=== PATIENT | female | born 1960 | race Caucasian/White ===

== ENCOUNTER 2017-09-19 16:41 | Inpatient (IN) | payer SELFPAY ==
[~2017-09-19 16:41] MED LIST: ISOVUE-370 76%-LOCM 1 ML ONE
[2017-09-19] MEDS ORDERED: Adenosine 6 MG/2 ML VIAL ONE ×2 (16:58→17:04)
[2017-09-19] MEDS ORDERED: ESMOLOL ONE (17:03)
[2017-09-19] MEDS ORDERED: NS ONE (17:03)
[2017-09-19 17:29] LABS: #Basophils 0.1 thou/uL (0.0-0.2); #Lymphocytes 0.8 thou/uL (1.20-3.40); #Monocytes 0.3 thou/uL (0.11-0.59); #Neutrophils 6.3 thou/uL (1.40-6.50); %Basophils 0.8 % (0.0-1.0); %Eosinophils 0.3 % (0.0-10.0); %Lymphocytes 10.4 % (21.0-51.0); %Monocytes 3.6 % (0.0-10.0); %Neutrophils 84.9 % (42.0-75.0); Mean Corpuscular HGB CONC 31.7 g/dL (32.0-36.0); Mean Corpuscular Hemoglobin 32.2 pg (27.0-31.0); Mean Platelet Volume 9.5 fL (7.4-10.4); Platelet Count 246 thou/uL (130-400); RBC Distribution Width 12.5 % (11.5-14.5); Red Blood Cell (RBC) Count 4.66 mill/uL (4.20-5.40); White Blood Cell (WBC) Count 7.4 thou/uL (4.8-10.8)
[2017-09-19] MEDS ORDERED: Diltiazem HCl 125 MG, Admixture Fee 1 EACH in Sodium Chloride 0.9% 100 ML IVPB SCH (17:30)
[2017-09-19 17:31] LABS: INR-International Normal Ratio 1.2; PTT 25.9 SEC (22.9-36.1); Prothrombin Time 15.1 SEC (12.0-14.7)
[2017-09-19 17:35] LABS: ALT (SGPT) 77 U/L (8-55); AST (SGOT) 59 U/L (5-34); Alkaline Phosphatase 67 U/L (40-150); Anion Gap 15 mmol/L (10-20); BUN (Urea Nitrogen) 21 mg/dL (9.8-20.1); Bilirubin, Total 0.7 mg/dL (0.2-1.2); CK (CPK) 60 U/L (29-168); Calc. Creatinine Clearance 0 mL/min (70-130); Calcium 9.2 mg/dL (7.8-10.44); Carbon Dioxide 20 mmol/L (22-29); Chloride 107 mmol/L (98-107); Estimated GFR-MDRD 62; Globulin 2.7 g/dL (2.4-3.5); Glucose 215 mg/dL (70-105); Potassium 4.7 mmol/L (3.5-5.1); Protein, Total 6.7 g/dL (6.0-8.3); Sodium 137 mmol/L (136-145)
[2017-09-19 17:39] LABS: CKMB 2.4 ng/mL (0-6.6); Troponin I Less than 0.010 ng/mL (< 0.028)
--- NOTE | 2017-09-19 18:11 | RAD ---
PORTABLE AP CHEST X-RAY 09/19/17 HISTORY: Difficulty breathing for several months. COMPARISON: None available. FINDINGS: There are pleural and parenchymal changes in the right lung base likely related to small right pleura l effusion and atelectasis. This does obscure the right cardiac borderline, but the cardiac silhouett e is probably mildly enlarged. Pulmonary vasculature is within normal limits. Linear density seen in the right mid lung zone probably related to small amount of fluid in the region of the minor fissure. Left lung is clear. Osseous structures are intact. IMPRESSION: 1. Small right pleural effusion and atelectasis. 2. Cardiomegaly without overt CHF. POS: H
[2017-09-19 18:28] LABS: Bilirubin Negative (Negative); Blood, Urine Negative (Negative); Clarity CLEAR (Clear); Glucose, Urine (Dipstick) 100 mg/dL (Negative); Leukocyte Negative (Negative); Nitrite Negative (Negative); Protein, Urine (Dipstick) Negative (Neg-Trace); Specific Gravity, Urine 1.011 (1.002-1.036); Urobilinogen 0.2 mg/dL (0.2-1.0)
[2017-09-19] MEDS ORDERED: Enoxaparin Sodium 80 MG/0.8 ML SYRINGE ONE (18:31)
[2017-09-19] MEDS ORDERED: Ondansetron HCl/PF 4 MG/2 ML Vial IVP PRN (19:21)
--- NOTE | 2017-09-19 19:21 | PDOC.EVN ---
Event Note - Event Note Event Note: [id number] H&P dictated 1. AFIB RVR 2. Dyspnea 3. Acute hypoxic respiratory failure plan: see orders
[2017-09-19] MEDS ORDERED: Enoxaparin Sodium 60 MG/0.6 ML SYRINGE SC SCH (19:30)
[2017-09-19 20:58] LABS: Troponin I 0.013 ng/mL (< 0.028)
[2017-09-19 21:39] VITALS: BMI 28.3
[2017-09-19] MEDS: Furosemide 20 MG/2 ML VIAL SLOW IVP SCH (21:59)
--- NOTE | 2017-09-19 22:01 | CT ---
CT ANGIOGRAM THORAX WITH IV CONTRAST AND 3D RECONSTRUCTIONS 09/19/17 HISTORY: Dyspnea and shortness of breath for the last several months. History of asthma. Hypertension. COMPARISON: None available. FINDINGS: No filling defects are seen in the pulmonary arteries to suggest a pulmonary embolus. The thoracic ao rta is not opacified as this exam was tailored for evaluation of the pulmonary arteries, but the thor acic aorta is normal in caliber with a few scattered vascular calcifications in the thoracic aorta. There is a small to moderate sized right pleural effusion with associated passive atelectasis. There is a tiny left pleural effusion with passive atelectasis. No discrete pulmonary nodule or mass is vis ualized. There is a nonspecific, nonenlarged prevascular space lymph node measuring 8 mm in short axi s dimension. No enlarged lymph nodes are seen by CT size criteria. There is limited evaluation of the upper abdomen due to lack of intravenous contrast. There is question of prominence of the common dg t which measures 1.2 cm. The osseous structures are intact. IMPRESSION: 1. Moderate sized left pleural effusion and atelectasis with tiny left pleural effusion and pass carrie atelectasis. 2. No CT evidence of pulmonary embolus. 3. Limited evaluation of the upper abdomen, but there is suggestion of mild dilatation of the co mmon duct. However, the common duct or gallbladder are not completely imaged on this exam. Etiology f or common duct dilatation is unable to be delineated on this exam. POS: TRAVIS
[2017-09-19 23:20] LABS: Troponin I 0.013 ng/mL (< 0.028)
--- NOTE | 2017-09-20 01:32 | HP ---
DATE OF ADMISSION: 09/19/2017 CHIEF COMPLAINT: Dyspnea. HISTORY OF PRESENT ILLNESS: Patient is a 57-year-old female came today, complaining of dyspnea. Dys pnea started all of sudden, constant, this has been going on for last 2 months, but got more worse to day. Complains of some palpitations. Denies any cough. Denies any sputum production. Complains of chest pain. Chest pain is tightness kind all over the chest. No aggravating factors. No relieving factors. Patient tried breathing treatments for last treatment and was also seen numerous tha es, but the breathing did not improve, so she came to the ER. Denies any cough, denies any sputum pr oduction, denies any fever, denies any chills. Upon ER arrival, patient was found to be in heart rat e around 180, so patient was given adenosine and diagnosed having atrial fibrillation RVR, so patient is currently on Cardizem drip. Patient denies any palpations, denies any dizziness, denies any naus ea. Denies any vomiting. PAST MEDICAL HISTORY: Hypertension, COPD. PAST SURGICAL HISTORY: Oral surgery. SOCIAL HISTORY: Positive for smoking. Denies any alcohol, denies any drugs. FAMILY HISTORY: Positive for emphysema. MEDICATIONS: Reviewed. REVIEW OF SYSTEMS: Constitutional: Denies any fever, denies any chills. Eyes: Denies any vision p roblems. Ears: Denies any hearing loss. Neck: Denies any neck pain. Cardiovascular system: Posi tive for chest pain. Respiratory System: Positive for dyspnea. Gastrointestinal: Denies any nause a, vomiting. Musculoskeletal: Denies any joint deformities. Integumentary: Denies any rash. All other review of systems are reviewed and are negative. PHYSICAL EXAMINATION: CONSTITUTIONAL/VITAL SIGNS: At the time of H&P performed, blood pressure is 120/70, heart rate 110s- 130s, respiratory rate 18, pulse ox 93% on 3 liters. GENERAL: Patient appears tired. HEENT: Anterior nares patent. Nose normal. Ears normal. Teeth intact. Tongue is moist. NECK: Supple, no JVD. CARDIOVASCULAR SYSTEM: S1, S2 present. Tachycardic, irregular. No murmurs, no rubs, no gallops. RESPIRATORY SYSTEM: Positive for wheezing. Positive for rhonchi. No accessory muscle seen. GASTROINTESTINAL: Soft, nontender, no guarding, no organomegaly, no masses felt. MUSCULOSKELETAL: No edema. CRANIAL NERVOUS SYSTEM: Awake, follows commands. Speech clear. PSYCHIATRIC: Mood appropriate at this time. INTEGUMENTARY: No rash seen. LABORATORY DATA: At the time of H&P performed white count 7.4, hemoglobin 15, platelet count is 246. PT 15.1, INR 1.2. BMP shows sodium 137, potassium 4.7, chloride 107, CO2 of 20, BUN of 21, creatin ine 0.94. Troponin less than 0.010. BNP 723. Chest x-ray positive for cardiomegaly without CHF, sm all right pleural effusion. ASSESSMENT AND PLAN: Patient is a 57-year-old female: 1. Atrial fibrillation with rapid ventricular response. Plan to check TSH, cardiac enzymes, and als o mag level. Plan to check 2D echo. Plan to consult Cardiology to evaluate the patient. Plan to st art patient on Cardizem drip. 2. Acute hypoxic respiratory failure, etiology unclear, might be secondary to underlying chronic obs tructive pulmonary disease. Plan to consult Pulmonary to evaluate the patient. Plan to start patien t on breathing treatments. CT chest, preliminary is negative for PE. We will wait for the official report. We will go ahead and consult Pulmonary. Will go ahead and give a dose of Lovenox also for t he atrial fibrillation with rapid ventricular response. 3. Dyspnea, we will give a dose of Lasix. We will start patient with elevated BNP. Plan to start p atient on Lasix 20 mg IV b.i.d. We will wait for 2D echo report. 4. History of hypertension. Monitor blood pressure. Continue home blood pressure meds. Case was discussed in detail with the patient. Patient is FULL CODE.
[2017-09-20] MEDS: Acetaminophen 325 MG TAB PO PRN ×2 (03:14→23:36)
[2017-09-20 04:33] LABS: #Basophils 0.1 thou/uL (0.0-0.2); #Lymphocytes 0.8 thou/uL (1.20-3.40); #Monocytes 0.1 thou/uL (0.11-0.59); #Neutrophils 8.6 thou/uL (1.40-6.50); %Basophils 0.8 % (0.0-1.0); %Lymphocytes 7.8 % (21.0-51.0); %Monocytes 1.1 % (0.0-10.0); %Neutrophils 90.2 % (42.0-75.0); Hemoglobin 14.9 g/dL (12.0-16.0); Mean Corpuscular Hemoglobin 33.4 pg (27.0-31.0); Mean Platelet Volume 9.9 fL (7.4-10.4); Platelet Count 218 thou/uL (130-400); RBC Distribution Width 12.3 % (11.5-14.5); Red Blood Cell (RBC) Count 4.46 mill/uL (4.20-5.40); White Blood Cell (WBC) Count 9.5 thou/uL (4.8-10.8)
[2017-09-20 05:00] LABS: Anion Gap 14 mmol/L (10-20); BUN (Urea Nitrogen) 17 mg/dL (9.8-20.1); Calc. Creatinine Clearance 114 mL/min (70-130); Calcium 9.3 mg/dL (7.8-10.44); Carbon Dioxide 24 mmol/L (22-29); Chloride 104 mmol/L (98-107); Estimated GFR-MDRD 87; Glucose 151 mg/dL (70-105); Potassium 4.1 mmol/L (3.5-5.1); Sodium 138 mmol/L (136-145)
[2017-09-20] MEDS: Furosemide 20 MG/2 ML VIAL SLOW IVP SCH ×2 (07:45→20:54)
[2017-09-20] MEDS ORDERED: Digoxin 0.5 MG/2 ML AMP SLOW IVP SCH (13:00)
--- NOTE | 2017-09-20 14:31 | PDOC.PN ---
- Subjective Encounter Start Date: 09/20/17 Encounter Start Time: 14:28 Subjective: Seen and examined feeling better but still in Afib - Objective Vital Signs & Weight: Vital Signs (12 hours) Temp Pulse Resp BP Pulse Ox 09/20/17 13:09 120 H 09/20/17 11:15 97.9 F 102 H 18 110/70 94 L 09/20/17 11:02 97 16 09/20/17 08:36 116 H 16 09/20/17 08:34 98.7 F 104 H 18 110/87 91 L 09/20/17 07:32 98.6 F 90 20 90 L 09/20/17 04:06 98.6 F 90 20 124/78 91 L Weight Weight 175 lb 7.807 oz I&O: 09/19/17 09/20/17 09/21/17 06:59 06:59 06:59 Intake Total 960 Output Total 3100 Balance -2140 Result Diagrams: 09/20/17 03:51 09/20/17 03:51 Phys Exam - Physical Examination Constitutional: NAD HEENT: PERRLA, moist MMs, sclera anicteric, TM's clear Neck: no nodes, no JVD, supple, full ROM Respiratory: no wheezing, no rales Cardiovascular: no significant murmur, no rub, irregular Gastrointestinal: soft, non-tender, no distention, positive bowel sounds Musculoskeletal: no edema, pulses present Dx/Plan (1) Afib Code(s): I48.91 - UNSPECIFIED ATRIAL FIBRILLATION Status: Acute (2) Respiratory distress Code(s): R06.03 - ACUTE RESPIRATORY DISTRESS Status: Acute (3) COPD (chronic obstructive pulmonary disease) Status: Acute - Plan cont current plan of care, PT/OT, social work nurse, respiratory therapy Cardiology following -: On cardizem gtt--may undergo cardioversion -: Cont nebs treatment * .
--- NOTE | 2017-09-20 15:37 | EKG ---
Test Reason : Blood Pressure : / mmHG Vent. Rate : 179 BPM Atrial Rate : 166 BPM P-R Int : 000 ms QRS Dur : 068 ms QT Int : 242 ms P-R-T Axes : 000 092 267 degrees QTc Int : 417 ms Atrial fibrillation with rapid ventricular response Rightward axis Septal infarct , age undetermined Abnormal ECG Confirmed by GÉNESIS JACKMAN, ARMANI Kidd ([id number]), health editor WOLF MORIN ([id number]) on 09/20/2017 3:37:36 PM Referred By: Confirmed By:ARMANI CAPPS MD
[2017-09-20] MEDS: Digoxin 0.5 MG/2 ML AMP SLOW IVP SCH (18:31)
--- NOTE | 2017-09-20 18:34 | CON ---
DATE OF CONSULTATION: 09/20/2017 CARDIOLOGY CONSULTATION INDICATION FOR CONSULTATION: This is a 57-year-old female with atrial fibrillation with rapid ventri cular response. HISTORY OF PRESENT ILLNESS: This is a very pleasant 57-year-old female with no previous cardiac hist ory. She has been complaining of shortness of breath and not feeling well for the last several weeks . She has a history of COPD in the form of asthma. She thought it radiated into her lungs and some asthma flare ups. She was seen in the emergency and was found to have atrial fibrillation with rapid ventricular response and was started on IV diltiazem, for which she remains on IV diltiazem at this time, the heart rate is under somewhat better control. When she arrived in the emergency room, the h eart rate was extremely fast with the atrial fibrillation with rapid ventricular response. Heart rat e was 180 beats per minute. At this time, the heart rate is under much better control with IV diltia zem and it is now in the 102 range. Her chest x-ray did show evidence of right pleural effusion comp atible with some congestive heart failure symptoms. She also has had slight elevation of the BNP of 723. I suspect she has had atrial fibrillation for several weeks and has developed congestive heart failure associated with the rapid ventricular response. Her EKG before does not show any EKG changes compatible with ischemia with rapid heart rates. She denied any dizziness or chest pain at home. S he states she has gained some weight and she admits she has been diuresing since she has been here an d has been given actually a small dose of IV Lasix. She also had a CT angiogram performed which did not show any evidence of pulmonary emboli, but did show small left pleural effusion and a moderate si ze right pleural effusion. At this time, she denies any chest pain. She is resting more comfortable . Her heart rate still remains in the 100s and she continues in atrial fibrillation. PAST MEDICAL HISTORY: Significant for COPD or asthma since her 22. She has a history of tobacco abu se. She stopped about 6 weeks ago. She has a history of hypertension, anxiety, depression. She has had oral surgery. SOCIAL HISTORY: She is . She has 1 child with no heart disease. She stopped smoking 6 weeks ago. She has occasional alcohol use. 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 MEDICATIONS: At the time include IV diltiazem, Tylenol, Lovenox, Lasix, albuterol, prednisone, and Z ofran. She has been on lisinopril in the past for her hypertension. We will probably resume this me dication once her blood pressure becomes more stable. ALLERGIES: None. REVIEW OF SYSTEMS: She wears glasses. She has occasional blurred vision. She has had no recent eye check. No new glasses in the last 2 years. She has gained some weight. She has arthritis. She co mplains of dyspnea on exertion. Otherwise, the 12-point review of systems unremarkable. PHYSICAL EXAMINATION: GENERAL: Reveals a well-developed, well-nourished, very pleasant female. VITAL SIGNS: Her blood pressure 110/70, heart rate is 102 and irregular. She is afebrile, respirato ry rate is 18. HEENT: Shows head to be normocephalic and atraumatic. Carotid pulses are present. I did not hear a ny bruits. CHEST: Has decreased breath sounds in the bases, more so on the right side than left. CARDIOVASCULAR: Reveals an irregular, irregular rhythm. Heart sounds are somewhat distant, but I do not hear any gross murmurs, heaves, thrills, bruits or rubs. ABDOMEN: Shows mild obesity with positive bowel sounds. No organomegaly or masses noted. Femoral p ulses are present. Pedal pulses are present. There is no edema noted. NEUROLOGIC: She appears to be fully intact. SKIN: Warm and dry. IMAGING DATA: EKG shows atrial fibrillation with rapid ventricular response with no ischemic changes noted. Chest x-ray shows a moderate size right pleural effusion. IMPRESSION: 1. Atrial fibrillation with rapid ventricular response. Her CHADS-VASc score is at least 2. She sh ould be on some type of oral anticoagulation and hopefully she will be able to be anticoagulated and then we will eventually convert back to sinus rhythm in the future. I will need to obtain an echocar diogram to determine the left atrial size, also evaluation of left ventricular systolic function. On ce she has been anticoagulated 4-6 weeks, we will start her on medications to possibly convert her ba ck to sinus rhythm. Depending on her echocardiogram, we will decide whether or not she needs amiodar one or flecainide or any other antiarrhythmic medications in order to get her back to sinus rhythm. 2. History of hypertension. This is under good control at this time, but may need further adjustmen t once she is over the acute phase. 3. Possible diabetes. Her glucose was elevated. Her blood sugar is elevated at 151, but she denies any history of having diabetes in the past. We will continue to follow this patient with you. 4. Atrial fibrillation with rapid ventricular response which has been kept in toe and improved with IV diltiazem. We will add IV digoxin starting today for loading dose and start her on p.o. digoxin t omorrow. She may need to have further evaluation to determine etiology of atrial fibrillation, most likely is due to chronic obstructive pulmonary disease exacerbation. 5. History of possible diabetes. We will need to obtain a hemoglobin A1c. Otherwise, we will manjit rene to follow her with you.
[2017-09-20] MEDS: Enoxaparin Sodium 80 MG/0.8 ML SYRINGE SC SCH (20:52)
--- NOTE | 2017-09-20 22:28 | CON ---
DATE OF CONSULTATION: 09/20/2017 SERVICE: Pulmonary Medicine. REASON FOR CONSULTATION: [facility] patient. HISTORY OF PRESENT ILLNESS: The patient is a 57-year-old white female with past medical history significant for possible COPD versus asthma. She is on some inhalers, but typically does not require them. That is until about 3 months ago. She started having increasing shortness of breath that was a little bit worse when she was lying down. It progressed over the last 3 months and over the last week, she has been having a difficult time sleeping and moving about. 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 She was having hard time getting through her shift without breathing in through her nose and out through the mouth. Ultimately, her shortness of breath progressed to the point where she really could not by anymore and she presented to the emergency department where she was discovered to have a moderate right-sided pleural effusion. She was also in atrial fibrillation with RVR. She was given some Lasix and rate control medication and the patient feels dramatically better. She denies any current fevers, chills, nausea or vomiting. Her appetite is returning and she started to feel much improved. Otherwise, there has been no interval change to her condition. PAST MEDICAL HISTORY: 1. Hypertension. 2. Chronic obstructive pulmonary disease, possible. 3. Atrial fibrillation with history of rapid ventricular response. PAST SURGICAL HISTORY: Oral surgery. SOCIAL HISTORY: She smokes half a pack on a daily basis and has a [id number] history of smoking. She denies any alcohol or illicit drugs. She has no exposure to chemicals, dusts, asbestos or tuberculosis. FAMILY HISTORY: Noncontributory. ALLERGIES: No known drug allergies. MEDICATIONS: List of her inpatient medications were reviewed. Couple of small updates were made. REVIEW OF SYSTEMS: General, head, ears, eyes, nose, throat, cardiovascular, respiratory, GI, , musculoskeletal, neurologic and skin is negative except as mentioned in the H&P. PHYSICAL EXAMINATION: VITAL SIGNS: Afebrile, pulse 112, blood pressure 126/82, respirations 22, saturation 95% on room air. HEENT: Normocephalic, atraumatic. Sclerae are white, conjunctivae pink. Oral and nasal mucosa is moist without lesions. GENERAL: The patient is awake and alert, in no apparent distress. LUNGS: Excellent air entry. There is a little decreased air entry at the right base compared to the left, although it is dramatic. There is no prolonged expiratory phase, wheezing or rhonchi. HEART: Tachycardic. Irregular. ABDOMEN: Soft, nontender, nondistended. Bowel sounds are positive. MUSCULOSKELETAL: No cyanosis or clubbing. There is no pitting in the bilateral lower extremities. NEUROLOGIC: Grossly nonfocal. GENITOURINARY: No Macdonald. LABORATORY DATA: WBC 9.5, hemoglobin 14.9, platelets 218. INR 1.2. Basic metabolic profile and liver function studies are essentially unremarkable except for an AST and ALT that are minimally elevated. BNP 723, troponin is negative x3. Urinalysis is unremarkable except for minimal glycosuria. IMAGING: CTA of the chest demonstrates no evidence of a pulmonary embolism. There is a moderate right-sided pleural effusion and a minimal left-sided pleural effusion. No evidence of emphysematous changes are identified. There is minimal atelectasis of the right dependent region of the lung. ASSESSMENT: 1. Acute hypoxic respiratory failure, resolved. 2. Atrial fibrillation with rapid ventricular response. 3. Pleural effusion, bilateral, but much greater on the right. 4. Obstructive sleep apnea, suspected. PLAN: We will continue diuresing the patient until she returns to euvolemia. She will require a repeat chest x-ray in 2-3 weeks in the outpatient setting to verify that the effusion has resolved. If it has not, additional diagnostic studies like a thoracentesis may need to be considered. I am doubtful that this is an infected space or a malignant or inflammatory infusion at this time given the circumstances of her presentation. That being said, it will need to be sampled in the future if it does not resolve once the heart is fixed. 70 minutes have been devoted to this patient in various activities. I personally reviewed all imaging studies and laboratory data noted within this document. For greater than fifty percent of this time, I was interacting with the patient at the bedside or coordinating care with the care team. For the remainder of the time I was immediately available to the patient in the hospital unit. MOJGAN
[2017-09-21] MEDS: Digoxin 0.5 MG/2 ML AMP SLOW IVP SCH (01:38)
[2017-09-21 04:55] LABS: Hemoglobin A1c 5.6 % (4.0-6.0)
[2017-09-21] MEDS: Furosemide 20 MG/2 ML VIAL SLOW IVP SCH ×2 (09:26→20:22)
[2017-09-21] MEDS: Enoxaparin Sodium 80 MG/0.8 ML SYRINGE SC SCH ×2 (09:26→20:21)
[2017-09-21] MEDS: Digoxin 0.25 MG TAB PO SCH (09:26)
[2017-09-21] MEDS: Acetaminophen 325 MG TAB PO PRN (09:27)
--- NOTE | 2017-09-21 10:01 | PDOC.PN ---
- Subjective Encounter Start Date: 09/21/17 Encounter Start Time: 09:58 CC; Dyspnea Sub: Pt says dyspnea improved, currently on room air - Objective Vital Signs & Weight: Vital Signs (12 hours) Temp Pulse Resp BP Pulse Ox 09/21/17 09:26 110 H 09/21/17 08:57 93 L 09/21/17 07:46 97.9 F 95 20 113/80 90 L 09/21/17 04:05 97.7 F 85 21 H 107/61 91 L 09/21/17 01:38 97 09/20/17 23:41 98.1 F 112 H 21 H 123/80 92 L Weight Weight 175 lb 7.807 oz I&O: 09/20/17 09/21/17 09/22/17 06:59 06:59 06:59 Intake Total 960 3675 Output Total 3100 3175 Balance -2140 500 Result Diagrams: 09/20/17 03:51 09/20/17 03:51 Dx/Plan - Plan - Physical Examination Constitutional: NAD HEENT: PERRLA, moist MMs, sclera anicteric, TM's clear Neck: no nodes, no JVD, supple, full ROM Respiratory: no wheezing, no rales, no accessory muscle usage seen Cardiovascular: no significant murmur, no rub, irregular Gastrointestinal: soft, non-tender, no distention, positive bowel sounds Musculoskeletal: no edema, pulses present Dx/Plan (1) Afib Code(s): I48.91 - UNSPECIFIED ATRIAL FIBRILLATION Status: Acute (2) Respiratory distress Code(s): R06.03 - ACUTE RESPIRATORY DISTRESS Status: Acute (3) COPD (chronic obstructive pulmonary disease) Status: Acute 4. Acute hypoxic respiratory failure 5. Pleural effusion - Plan Cradio and pulmonary on board On iv lasix 20mg bid. can switch to po in am Monitor HR closely on room air,respiratory status closely Cont nebs treatment continue lovenox subq bid case d/w pt & RN * .
--- NOTE | 2017-09-21 14:20 | PRG ---
DATE OF SERVICE: 09/21/2017 SERVICE: Pulmonary Medicine. INTERVAL HISTORY: The patient is doing well from a cardiovascular and respiratory standpoint. She h as no complaints of fevers, chills, nausea, vomiting, or chest discomfort. Otherwise, she has return ed to her usual state of health. She has been weaned down to room air. She remains irregular. She is on a little bit of a Cardizem drip, but outside of this, she is very pleased with the progress she has made. PHYSICAL EXAMINATION: VITAL SIGNS: Afebrile, pulse 71, blood pressure 138/85, respirations 15, saturation 94% on room air. GENERAL: The patient is awake, alert, no apparent distress. LUNGS: Excellent air entry with no prolonged expiratory phase, wheezing, rhonchi or crackles. HEART: Irregularly irregular. ABDOMEN: Soft, nontender, nondistended. Bowel sounds are positive. MUSCULOSKELETAL: No cyanosis or clubbing. No pitting in the bilateral lower extremities. NEUROLOGIC: Grossly nonfocal. ASSESSMENT: 1. Acute hypoxic respiratory failure, resolved. 2. Atrial fibrillation with rapid ventricular response. 3. Pleural effusion, bilateral, but much greater on the right. DISCUSSION AND PLAN: The patient is doing absolutely fantastic from a respiratory standpoint. We wi ll continue to gently diurese her to euvolemia, but now that her heart rate is under better control, my suspicion is she will mobilize the fluid on her own. We will need a repeat chest x-ray in 2-3 wee ks in the outpatient setting. She is stable for transition to the telemetry unit. Pulmonary will co ntinue to follow intermittently in that location.
[2017-09-22 04:34] LABS: Platelet Count 234 thou/uL (130-400)
[2017-09-22 04:56] LABS: Anion Gap 15 mmol/L (10-20); BUN (Urea Nitrogen) 28 mg/dL (9.8-20.1); Calc. Creatinine Clearance 100 mL/min (70-130); Calcium 9.5 mg/dL (7.8-10.44); Carbon Dioxide 26 mmol/L (22-29); Chloride 100 mmol/L (98-107); Estimated GFR-MDRD 74; Glucose 91 mg/dL (70-105); Magnesium 2.3 mg/dL (1.6-2.6); Potassium 4.1 mmol/L (3.5-5.1); Sodium 137 mmol/L (136-145)
[2017-09-22] MEDS: Furosemide 20 MG/2 ML VIAL SLOW IVP SCH (08:30)
[2017-09-22] MEDS: Digoxin 0.25 MG TAB PO SCH (08:30)
[2017-09-22] MEDS: Enoxaparin Sodium 80 MG/0.8 ML SYRINGE SC SCH ×2 (08:30→20:30)
--- NOTE | 2017-09-22 10:17 | PRG ---
DATE OF SERVICE: 09/22/2017 SERVICE: Pulmonary Medicine. INTERVAL HISTORY: The patient had increasing cough with some sputum production. She denies any feve rs or chills. She has increasing difficulty with breathing. She is using nebulizer right now which she requested. It seems to be helping her breathing a little bit. Otherwise, there has been no inte rval change to her condition. PHYSICAL EXAMINATION: VITAL SIGNS: Afebrile, pulse 83, blood pressure 123/93, respirations 16, saturation 93% on room air. GENERAL: The patient is awake, alert, no apparent distress. LUNGS: Decent air entry. There is no prolonged expiratory phase or wheezing. There are no rhonchi present. HEART: Normal rate, regular. ABDOMEN: Soft, nontender, and nondistended. Bowel sounds are positive. MUSCULOSKELETAL: No cyanosis or clubbing. No pitting in the bilateral lower extremities. NEUROLOGIC: Grossly nonfocal. LABORATORY DATA: Hemoglobin 17.0, platelets 234,000. INR 1.2. Basic metabolic profile is essential ly unremarkable. Magnesium 2.3, bicarbonate has increased ever so slightly to 26. ASSESSMENT: 1. Acute hypoxic respiratory failure, resolved. 2. Atrial fibrillation with rapid ventricular response. 3. Pleural effusion, bilateral, greater on right. 4. Atelectasis of the right lower lobe. DISCUSSION AND PLAN: The patient is having symptoms associated with hypoxemia. My suspicion is that she is having some atelectasis that comes and goes in the right lower lobe. We will look with an ul trasound. If we see a generous collection of fluid, thoracentesis will be performed. I will repeat the chest x-ray after this procedure can be done. I will decrease her Lasix to once daily. Pulmonar y or Critical Care will continue to follow and she does remain stable for transition to the floor. Bárbara mayfield did have a recent CT of the chest, which did not demonstrate any obvious infiltrate, I am doubtful that one has developed over the last 2 days.
[2017-09-22 13:01] LABS: Pleural Fluid, Protein 2.8 g/dL
[2017-09-22 13:02] LABS: BF Color Yellow; Body Fluid Source THORACENTESIS FLD; Clarity Hazy (Clear); RBC Background Count 0.006; Tube # 1; WBC/NonHematic-Auto 360 /cumm
[2017-09-22 13:19] LABS: BF RBC Count - Manual 170 /cumm
[2017-09-22 13:54] LABS: BF Segmented Neutrophils 2 %; Cell Count Non Hematic 84 %; Lymphocytes 14 %
--- NOTE | 2017-09-22 16:42 | OP ---
DATE OF PROCEDURE: 09/22/2017 SERVICE: Pulmonary Medicine. PROCEDURE: Right-sided pleural drainage with catheter insertion under ultrasound guidance. CONSENT: The risks and benefits of this procedure were explained to the patient. All questions were answered and alternative options explained. STAFF PHYSICIAN: Shane Maxwell MD MEDICATIONS USED: 1% lidocaine without epinephrine, total quantity 10 mL. PREPROCEDURE DIAGNOSES: 1. Pleural effusion. 2. Acute hypoxic respiratory failure. POSTPROCEDURE DIAGNOSES: 1. Pleural effusion. 2. Acute hypoxic respiratory failure. DESCRIPTION OF PROCEDURE: A time-out was performed by the procedure team and patient. The patient w as positively identified using name and date of . The procedure site was marked. Vital sign mo nitoring was accomplished by noninvasive hemodynamic monitoring, pulse oximetry, and telemetry. In t he seated position, the right posterior hemithorax was examined using ultrasound probe. The diaphrag m and pleural fluid were easily identified. The skin was prepped and draped in sterile fashion and a nesthetized with 1% lidocaine without epinephrine. A finder needle was inserted in the pleural space with return of crystal clear yellow fluid. A pleural drainage catheter was then inserted in the jia e location and a total quantity of 750 mL of the same clear fluid was withdrawn by syringe pump techn ique. A sample was sent for analysis. Evacuation was terminated because the fluid stopped coming. At the end of the procedure, estimated pleural pressures, measured by manometry, were -18 cm of pleur al fluid. An intact catheter was withdrawn on exhalation, and sterile dressing was applied. The pat ient had stable vital signs throughout the entire procedure. ESTIMATED BLOOD LOSS: Less than 2 mL. COMPLICATIONS: None.
--- NOTE | 2017-09-22 17:38 | PDOC.PN ---
- Subjective Encounter Start Date: 09/22/17 Encounter Start Time: 16:00 Patient seen and examined. No new complaints. No overnight events. SOB improving. - Objective MAR Reviewed: Yes Vital Signs & Weight: Vital Signs (12 hours) Temp Pulse Resp BP Pulse Ox 09/22/17 16:14 98.8 F 86 18 119/82 91 L 09/22/17 12:00 98.6 F 102 H 18 117/83 91 L 09/22/17 09:31 75 16 93 L 09/22/17 08:30 83 09/22/17 08:24 92 L 09/22/17 08:00 98.2 F 83 18 92 L 09/22/17 07:36 98.2 F 83 18 123/93 H 89 L Weight Weight 175 lb 7.807 oz I&O: 09/21/17 09/22/17 09/23/17 06:59 06:59 06:59 Intake Total 3675 930 Output Total 3175 4900 Balance 500 -3970 Result Diagrams: 09/22/17 04:10 09/22/17 04:10 EKG Reviewed by me: Yes (Tele Afib) Phys Exam - Physical Examination Constitutional: NAD Respiratory: no wheezing, no rhonchi Scat rales at bases Cardiovascular: no rub, irregular Gastrointestinal: soft, non-tender, positive bowel sounds Musculoskeletal: no edema Neurological: moves all 4 limbs Dx/Plan - Plan IMPRESSION: 1. Acute hypoxic respiratory failure 2. Rt pleural effusion s/p thoracentesis 3. Afib with RVR - on Cardizem drip 4. HTN 5. Other issues per PN PLAN: * Transfer to tele * Cont Cardizem drip & PO * On Anticoag * AM labs * Cont to monitor Review of Systems - Review of Systems Cardiovascular: negative: chest pain, palpitations, orthopnea, paroxysmal nocturnal dyspnea, edema, light headedness Gastrointestinal: Nausea, Constipation. negative: Vomiting, Abdominal Pain, Diarrhea, Melena, Hematochezia - Medications/Allergies Allergies/Adverse Reactions: Allergies Allergy/AdvReac Type Severity Reaction Status Date / Time No Known Drug Allergies Allergy Verified 09/19/17 21:23 Medications: Current Medications Acetaminophen (Tylenol) 650 mg PO Q4H PRN PRN Reason: Headache/Fever or Pain Last Admin: 09/21/17 09:27 Dose: 650 mg Albuterol/Ipratropium (Duoneb) 3 ml IPPB [id number] PRN PRN Reason: SOB &/or Wheezing Last Admin: 09/22/17 09:31 Dose: 3 ml Digoxin (Lanoxin) 0.25 mg PO QAM [facility] Last Admin: 09/22/17 08:30 Dose: 0.25 mg Diltiazem HCl (Cardizem Cd) 180 mg PO DAILY [facility] Enoxaparin Sodium (Lovenox) 80 mg SC 0900,2100 [facility] Last Admin: 09/22/17 08:30 Dose: 80 mg Diltiazem HCl 125 mg/Miscellaneous Medication 1 each/ Sodium Chloride 125 mls @ 5 mls/hr IVPB INF ROSELIA PRN Reason: Protocol Last Admin: 09/20/17 17:31 Dose: 125 mls Ondansetron HCl (Zofran) 4 mg IVP Q6H PRN PRN Reason: Nausea/Vomiting Sodium Chloride (Flush - Normal Saline) 10 ml IVF Q12HR [facility] Sodium Chloride (Flush - Normal Saline) 10 ml IVF PRN PRN PRN Reason: Saline Flush
[2017-09-22] MEDS: Senokot S 8.6-50 MG TAB PO SCH (20:31)
[2017-09-23 04:39] LABS: Hemoglobin 18.1 g/dL (12.0-16.0); Platelet Count 213 thou/uL (130-400)
[2017-09-23 05:10] LABS: Anion Gap 16 mmol/L (10-20); BUN (Urea Nitrogen) 23 mg/dL (9.8-20.1); Calc. Creatinine Clearance 104 mL/min (70-130); Calcium 9.3 mg/dL (7.8-10.44); Carbon Dioxide 22 mmol/L (22-29); Chloride 100 mmol/L (98-107); Estimated GFR-MDRD 78; Glucose 98 mg/dL (70-105); Potassium 4.3 mmol/L (3.5-5.1); Sodium 134 mmol/L (136-145)
[2017-09-23] MEDS: Enoxaparin Sodium 80 MG/0.8 ML SYRINGE SC SCH ×2 (08:44→20:35)
[2017-09-23] MEDS: Senokot S 8.6-50 MG TAB PO SCH ×2 (08:44→20:35)
[2017-09-23] MEDS: Digoxin 0.25 MG TAB PO SCH (08:44)
[2017-09-23] MEDS ORDERED: Furosemide 20 MG/2 ML VIAL SLOW IVP SCH (09:00)
[2017-09-23] MEDS: Acetaminophen 325 MG TAB PO PRN (12:34)
[2017-09-23] MEDS ORDERED: cloNIDine 0.1 MG TAB PO PRN (13:46)
--- NOTE | 2017-09-23 13:50 | PDOC.PN ---
- Subjective Encounter Start Date: 09/23/17 Encounter Start Time: 10:40 Patient seen and examined. On Cardizem drip. No overnight events. Feels gen weak - Objective MAR Reviewed: Yes Vital Signs & Weight: Vital Signs (12 hours) Temp Pulse Resp BP BP Pulse Ox 09/23/17 08:44 96 09/23/17 08:00 98.1 F 75 16 95 09/23/17 07:30 98.1 F 75 16 130/98 H 95 09/23/17 03:48 99.0 F 83 16 107/70 92 L Weight Weight 163 lb 4.8 oz I&O: 09/22/17 09/23/17 09/24/17 06:59 06:59 06:59 Intake Total 930 472 Output Total 4900 275 Balance -3970 197 Result Diagrams: 09/23/17 04:03 09/23/17 04:03 EKG Reviewed by me: Yes Phys Exam - Physical Examination Constitutional: NAD Neck: no JVD Respiratory: no wheezing, no rhonchi Scat rales at bases Cardiovascular: RRR, no rub Gastrointestinal: soft, non-tender, positive bowel sounds Musculoskeletal: no edema Neurological: non-focal, moves all 4 limbs Dx/Plan - Plan IMPRESSION: 1. Acute hypoxic respiratory failure 2. Rt pleural effusion s/p thoracentesis 3. Afib with RVR - on Cardizem drip/anticoag 4. HTN 5. Other issues per PN PLAN: * Cont Cardizem drip with PO per Cardiology * On Anticoag * AM labs * Cont to monitor * Possible JAKE-CV Review of Systems - Review of Systems Respiratory: negative: Cough, Dry, Shortness of Breath, Hemoptysis, SOB with Excertion, Pleuritic Pain, Sputum, Wheezing Cardiovascular: negative: chest pain, palpitations, orthopnea, paroxysmal nocturnal dyspnea, edema, light headedness - Medications/Allergies Allergies/Adverse Reactions: Allergies Allergy/AdvReac Type Severity Reaction Status Date / Time No Known Drug Allergies Allergy Verified 09/19/17 21:23 Medications: Current Medications Acetaminophen (Tylenol) 650 mg PO Q4H PRN PRN Reason: Headache/Fever or Pain Last Admin: 09/23/17 12:34 Dose: 650 mg Albuterol/Ipratropium (Duoneb) 3 ml IPPB [id number] PRN PRN Reason: SOB &/or Wheezing Last Admin: 09/22/17 09:31 Dose: 3 ml Clonidine (Catapres) 0.1 mg PO Q4H PRN PRN Reason: Systolic BP > 180 Digoxin (Lanoxin) 0.25 mg PO QAM [facility] Last Admin: 09/23/17 08:44 Dose: 0.25 mg Diltiazem HCl (Cardizem Cd) 180 mg PO DAILY [facility] Last Admin: 09/23/17 08:44 Dose: 180 mg Enoxaparin Sodium (Lovenox) 80 mg SC 0900,2100 [facility] Last Admin: 09/23/17 08:44 Dose: 80 mg Diltiazem HCl 125 mg/Miscellaneous Medication 1 each/ Sodium Chloride 125 mls @ 5 mls/hr IVPB INF [facility] PRN Reason: Protocol Last Admin: 09/20/17 17:31 Dose: 125 mls Ondansetron HCl (Zofran) 4 mg IVP Q6H PRN PRN Reason: Nausea/Vomiting Senna/Docusate Sodium (Senokot S) 1 tab PO BID [facility] Last Admin: 09/23/17 08:44 Dose: Not Given Sodium Chloride (Flush - Normal Saline) 10 ml IVF Q12HR [facility] Last Admin: 09/23/17 08:45 Dose: Not Given Sodium Chloride (Flush - Normal Saline) 10 ml IVF PRN PRN PRN Reason: Saline Flush
--- NOTE | 2017-09-23 14:45 | PDOC.CTH ---
<Cheyanne Sheehan - Last Filed: 09/23/17 15:29> Cardiology Progress Note - Subjective The pt seen and examined. No overnight events. No cardiac complaints. She stated she cannot afford her medication due to no insurance. - Objective Vital Signs Temp Pulse Resp BP BP Pulse Ox 09/23/17 12:40 97.9 F 89 16 107/75 96 09/23/17 08:44 96 09/23/17 08:00 98.1 F 75 16 95 09/23/17 07:30 98.1 F 75 16 130/98 H 95 09/23/17 03:48 99.0 F 83 16 107/70 92 L Weight 163 lb 4.8 oz 09/22/17 09/23/17 09/24/17 06:59 06:59 06:59 Intake Total 930 472 Output Total 4900 275 Balance -3970 197 - Physical Examination General/Neuro: alert & oriented x3 Neck: no JVD present Lungs: other: (diminished at bases) Heart: other: (irregular) Abdomen: soft Extremities: other: (No edema) - Telemetry Telemetry Rhythm: Afib with HR 80s - Labs Result Diagrams: 09/23/17 04:03 09/23/17 04:03 Troponin/CKMB CK-MB (CK-2) 2.4 ng/mL (0-6.6) 09/19/17 17:00 Troponin I 0.013 ng/mL (< 0.028) 09/19/17 22:46 - Assessment/Plan 1. Afib with RVR - Remains in Afib with well controlled HR with Digoxin 0.25mg PO, Diltiazem 180mg daily and Lovenox 80mg BID; Stop Diltiazem Drip. Cont. to monitor on tele; Plan for Cardioversion tomorrow, 09/24/17. 2. Acute hypoxic respiratory failure - stable with RA; managed by PCP/ Pulmonlogist 3. Rt pleural effusion s/p thoracentesis with 750ml out on 09/22/17 4. HTN - stable with current med 5. Ex-smoker, quit in 07/2017 - Smoking cessation education given to the pt MAR reviewed * Ecddho on 09/21/17 showed EF 40-45%, mod LA dilated, mild MR, AR, and TR * [id number] score: 1 (age and female) need OAC. * From Cardiac standpoint, the pt is able to d/c to home when her HR is stable after Diltiazem IV is d/triston. The pt will f/u with Dr Arita' office within 4 wks for ECG check and possible Cardioversion as outpt. Eliquis 5mg BID samples with coupon given to the pt today. Review of Systems - Review of Systems Constitutional: reports: no symptoms reported EENTM: reports: no symptoms reported Respiratory: reports: no symptoms reported Cardiac (ROS): reports: no symptoms reported ABD/GI: reports: no symptoms reported <Jaqueline Arita - Last Filed: 09/25/17 18:49> Cardiology Progress Note - Objective Vital Signs Temp Pulse Resp BP BP BP Pulse Ox 09/25/17 15:50 97.6 F 75 16 122/77 93 L 09/25/17 11:43 98.1 F 86 18 136/89 96 09/25/17 08:44 146 H 09/25/17 07:50 98.4 F 92 16 121/81 93 L Weight 153 lb 14.4 oz 09/24/17 09/25/17 09/26/17 06:59 06:59 06:59 Intake Total 240 Output Total 200 1500 Balance -200 -1260 - Labs Result Diagrams: 09/24/17 04:36 09/24/17 04:36 Troponin/CKMB CK-MB (CK-2) 2.4 ng/mL (0-6.6) 09/19/17 17:00 Troponin I 0.013 ng/mL (< 0.028) 09/19/17 22:46 - Assessment/Plan Pt. seen and eval. by me. I agree with the A/P by the OVERLOCKER.
[2017-09-23] MEDS ORDERED: Apixaban 5 MG TAB PO SCH (21:00)
[2017-09-24 05:32] LABS: Hemoglobin 17.6 g/dL (12.0-16.0); Platelet Count 208 thou/uL (130-400)
[2017-09-24 05:40] LABS: Albumin 3.8 g/dL (3.5-5.0); Anion Gap 12 mmol/L (10-20); BUN (Urea Nitrogen) 20 mg/dL (9.8-20.1); BUN/Creatinine Ratio 25.97; Calc. Creatinine Clearance 97 mL/min (70-130); Calcium 9.4 mg/dL (7.8-10.44); Carbon Dioxide 24 mmol/L (22-29); Chloride 101 mmol/L (98-107); Estimated GFR-MDRD 78; Glucose 115 mg/dL (70-105); Magnesium 2.2 mg/dL (1.6-2.6); Phosphorus 3.1 mg/dL (2.3-4.7); Sodium 133 mmol/L (136-145)
--- NOTE | 2017-09-24 07:31 | PRG ---
DATE OF SERVICE: 09/23/2017 SERVICE: Pulmonary Medicine INTERVAL HISTORY: The patient is doing fine from a respiratory standpoint. She is coughing up a lot more sputum today. It is yellow in color. We did not see previous pneumonia. Previous pneumonia o n the CT of the chest. That being said, there is a possibility she has developed a little bit of bro nchitis while she is here. She does not have any complaints of shortness of breath. If anything, abdias mayfield feels a little bit better ever since the thoracentesis yesterday. PHYSICAL EXAMINATION: VITAL SIGNS: Currently afebrile. Pulse 97, blood pressure 132/93, respirations 14, saturation 94% o n room air. GENERAL: The patient is awake, alert, no apparent distress. LUNGS: Excellent air entry with no prolonged expiratory phase. Minimal rhonchi cleared with cough. No wheezing or crackles are appreciated. HEART: Normal rate, regular. ABDOMEN: Soft, nontender, and nondistended. Bowel sounds are positive. MUSCULOSKELETAL: No cyanosis or clubbing. No pitting in the bilateral lower extremities. NEUROLOGIC: Grossly nonfocal. LABORATORY DATA: Hemoglobin 18.1, platelets 213,000. Sodium 134. Basic metabolic profile is otherw ise unremarkable. Pleural fluid pH 7.5, LDH 119. Glucose 104, total protein 2.8. It is nonhematolo gic predominant cell type. Only 14% lymphocytes are present. Body fluid culture and acid fast smear are unremarkable today. Pathology was positive for reactive mesothelial cells, but there was no mal ignancy present. ASSESSMENT: 1. Acute hypoxic respiratory failure, resolved. 2. Atrial fibrillation with rapid ventricular response, currently rate controlled. 3. Pleural effusion, bilateral, but little greater on the right, status post thoracentesis on the [facility], demonstrating transudate. 4. Atelectasis of the right lower lobe, resolved. 5. Bronchitis. DISCUSSION AND PLAN: For the patient's bronchitis, we will put on a brief course of low doses of jenise roids and give her 5 days of azithromycin. I will watch her sputum changes and possibly escalate the rapy if necessary. That being said, the patient feels like she is moving in the right direction and so we will continue supportive care. Pulmonary or Critical Care will continue to follow while the vicky carl remains in this location for the time being.
[2017-09-24] MEDS ORDERED: Fentanyl 250 MCG/5 ML VIAL ONE (09:17)
[2017-09-24] MEDS ORDERED: Diprivan 20 ML ONE (09:21)
[2017-09-24] MEDS ORDERED: Lidocaine 1% PF 5 ML VIAL ONE ×2 (09:29→14:46)
--- NOTE | 2017-09-24 11:24 | OP ---
DATE OF PROCEDURE: 09/24/2017 INDICATION FOR PROCEDURE: A 57-year-old female who was admitted with pneumonia, a right pleural effu teodora and atrial fibrillation with rapid ventricular response. She has been treated by medical manage ment and then was advised to undergo electrical cardioversion of her atrial fibrillation back to sinu s rhythm. She was taken to the recovery area where she received short acting propofol. Transesophag eal probe was passed down the distal esophagus and images were obtained. She had a normal ejection f raction, had evidence of mild left atrial dilatation, mild tricuspid aortic valve regurgitation, mild to moderate mitral valve regurgitation with smoke formation left atrium. She underwent the cardiov ersion without any difficulties or complications. She was successfully converted with one shock at 2 00 joules and then converted back to atrial fibrillation. A second attempt at 300 joules was perform ed. She again converted back to sinus rhythm, but just for a few minutes and then returned back to h er atrial fibrillation. At this time, we will continue to treat her with medical management. I would give her 1 more attempt to see whether or not she will convert to sinus rhythm and maintain, otherwise we may need to start further more prone antiarrhythmic medications and then attempt again the cardioversion. The full dictated note for the transechocardiogram will be in the computer generated report, but as f ar as the electrocardioversion she has done relatively well except she has been unable to maintain si nus rhythm.
[2017-09-24] MEDS ORDERED: Hydrocortisone 1% Cream 30 GM TUBE ONE (12:07)
[2017-09-24] MEDS: Senokot S 8.6-50 MG TAB PO SCH ×2 (12:49→20:27)
[2017-09-24] MEDS: predniSONE 20 MG TAB PO SCH (12:49)
[2017-09-24] MEDS: Amoxicillin/Potassium Clav 875 MG TAB PO SCH ×2 (12:50→20:27)
[2017-09-24] MEDS: Digoxin 0.25 MG TAB PO SCH (13:01)
[2017-09-24] MEDS: Enoxaparin Sodium 80 MG/0.8 ML SYRINGE SC SCH ×2 (13:02→20:27)
--- NOTE | 2017-09-24 13:37 | RAD ---
TWO VIEWS CHEST: HISTORY: Status post right-sided thoracentesis. COMPARISON: 09/19/2017 FINDINGS: Normal cardiac silhouette. The pulmonary vessels and hilum are normal. Previously noted opacificati on of the right hemithorax has essentially resolved. No significant pleural effusion. No pneumothor ax. Focal opacity in the left lower lobe, likely representing a retrocardiac infiltrate. IMPRESSION: 1. Interval resolution of previously noted right-sided pleural effusion. No pneumothorax. 2. Retrocardiac infiltrate. POS: [facility]
[2017-09-24] MEDS ORDERED: Propofol 200 MG/20 ML VIAL ONE (14:46)
[2017-09-24] MEDS ORDERED: Flecainide 50 MG TAB PO SCH (16:00)
--- NOTE | 2017-09-24 17:14 | PRG ---
DATE OF SERVICE: 09/24/2017 SERVICE: Pulmonary Medicine. INTERVAL HISTORY: The patient is doing absolutely outstanding from a respiratory standpoint. She is breathing comfortably. She has no complaints of chest pain, shortness of breath, or chills. Otherw ise, there has been no interval change to her condition. She continues to breathe comfortably. She is coughing up a little bit of sputum. PHYSICAL EXAMINATION: VITAL SIGNS: Afebrile, pulse 90, blood pressure 158/101, respirations 18, saturation 92% on room air . GENERAL: The patient is awake and alert, in no apparent distress. HEENT: Normocephalic, atraumatic. Sclerae are white, conjunctivae pink. Oral and nasal mucosa is m oist without lesions. LUNGS: Decent air entry. I do not appreciate prolonged expiratory phase, wheezing, rhonchi or crack les. HEART: Normal rate, regular. ABDOMEN: Soft, nontender, nondistended. Bowel sounds are positive. MUSCULOSKELETAL: No cyanosis or clubbing. There is no pitting in the bilateral lower extremities. NEUROLOGIC: Grossly nonfocal. LABORATORY DATA: Hemoglobin 17.6, hematocrit 55, platelets 208,000. Sodium 133. Basic metabolic pr ofile is otherwise unremarkable. Magnesium and phosphorus are also unremarkable. IMAGING: Chest x-ray demonstrates resolution of the right-sided pleural effusion. The left lung has an infiltrate in the retrocardiac region. ASSESSMENT: 1. Acute hypoxic respiratory failure. 2. Community-acquired pneumonia. 3. Pleural effusion on the right, status post thoracentesis, transudate demonstrated. 4. Small pleural effusion on the left base on ultrasound. DISCUSSION AND PLAN: I will discontinue azithromycin in favor of fluoroquinolone. She can complete a 5-day course of this antibiotic. She will need a repeat chest x-ray in 4-6 weeks in the outpatient setting to verify the infiltrate resolves. Pulmonary Critical Care will continue to follow while th e patient remains in-house.
--- NOTE | 2017-09-24 20:29 | PDOC.PN ---
- Subjective Encounter Start Date: 09/24/17 Encounter Start Time: 13:45 Patient seen and examined. No new complaints. No overnight events. s/p CV - in Afib - Objective MAR Reviewed: Yes Vital Signs & Weight: Vital Signs (12 hours) Temp Pulse Resp BP Pulse Ox 09/24/17 13:01 90 09/24/17 12:49 90 09/24/17 12:21 97.9 F 90 18 158/101 H 92 L Weight Weight 163 lb 4.8 oz I&O: 09/23/17 09/24/17 09/25/17 06:59 06:59 06:59 Intake Total 472 Output Total 275 200 950 Balance 197 -200 -950 Result Diagrams: 09/24/17 04:36 09/24/17 04:36 EKG Reviewed by me: Yes (Tele Afib) Phys Exam - Physical Examination Constitutional: NAD Respiratory: no wheezing, no rhonchi Cardiovascular: no rub, irregular Gastrointestinal: soft, non-tender, positive bowel sounds Musculoskeletal: no edema Neurological: non-focal, moves all 4 limbs Psychiatric: A&O x 3 Dx/Plan - Plan DVT proph w/lovenox IMPRESSION: 1. Acute hypoxic respiratory failure 2. Rt pleural effusion s/p thoracentesis 3. Afib with RVR - on Cardizem/anticoag 4. HTN 5. Other issues per PN PLAN: * Cont Cardizem * On Anticoag * AM labs * Cont to monitor * s/p JAKE-CV - back in Afib * Cardio/Pulm following Review of Systems - Review of Systems Respiratory: negative: Cough, Dry, Shortness of Breath, Hemoptysis, SOB with Excertion, Pleuritic Pain, Sputum, Wheezing Cardiovascular: negative: chest pain, palpitations, orthopnea, paroxysmal nocturnal dyspnea, edema, light headedness Gastrointestinal: negative: Nausea, Vomiting, Abdominal Pain, Diarrhea, Constipation, Melena, Hematochezia - Medications/Allergies Allergies/Adverse Reactions: Allergies Allergy/AdvReac Type Severity Reaction Status Date / Time No Known Drug Allergies Allergy Verified 09/19/17 21:23 Medications: Current Medications Acetaminophen (Tylenol) 650 mg PO Q4H PRN PRN Reason: Headache/Fever or Pain Last Admin: 09/23/17 12:34 Dose: 650 mg Albuterol/Ipratropium (Duoneb) 3 ml IPPB [id number] PRN PRN Reason: SOB &/or Wheezing Last Admin: 09/22/17 09:31 Dose: 3 ml Amoxicillin/Clavulanate Potassium (Augmentin) 875 mg PO Q12HR [facility] Stop: 09/29/17 09:01 Last Admin: 09/24/17 20:27 Dose: 875 mg Clonidine (Catapres) 0.1 mg PO Q4H PRN PRN Reason: Systolic BP > 180 [facility] (Lan[facility]) [facility] Last Admin: 09/24/17 13:01 Dose: 0.25 mg Diltiazem HCl (Cardizem Cd) 240 mg PO DAILY [facility] Enoxaparin Sodium (Lovenox) 80 mg SC 0900,2100 [facility] Last Admin: 09/24/17 20:27 Dose: 80 mg Flecainide Acetate (Tambocor) 50 mg PO Q12HR [facility] Ondansetron HCl (Zofran) 4 mg IVP Q6H PRN PRN Reason: Nausea/Vomiting Prednisone (Prednisone) 20 mg PO QAM-[facility] Stop: 09/28/17 08:01 Last Admin: 09/24/17 12:49 Dose: 20 mg Senna/Docusate Sodium (Senokot S) 1 tab PO BID [facility] Last Admin: 09/24/17 20:27 Dose: 1 tab Sodium Chloride (Flush - Normal Saline) 10 ml IVF Q12HR [facility] Last Admin: 09/24/17 20:28 Dose: 10 ml Sodium Chloride (Flush - Normal Saline) 10 ml IVF PRN PRN PRN Reason: Saline Flush
--- NOTE | 2017-09-24 20:49 | ADD-OP ---
ADDENDUM: Earlier today, she underwent cardioversion at 300 joules and converted both times back to atrial fibr illation. A third attempt at 360 joules converted her again to sinus rhythm and that she remained in sinus rhythm for several hours until about 2 hours ago when she converted back to atrial fibrillatio n. There were no other changes to the dictation.
[2017-09-25] MEDS ORDERED: Regadenoson 0.4 MG/5 ML SYRINGE ONE (07:44)
[2017-09-25] MEDS: Senokot S 8.6-50 MG TAB PO SCH ×2 (08:43→20:15)
[2017-09-25] MEDS: Enoxaparin Sodium 80 MG/0.8 ML SYRINGE SC SCH ×2 (08:43→20:16)
[2017-09-25] MEDS: Amoxicillin/Potassium Clav 875 MG TAB PO SCH ×2 (08:43→20:15)
[2017-09-25] MEDS: predniSONE 20 MG TAB PO SCH (08:44)
[2017-09-25] MEDS: Digoxin 0.25 MG TAB PO SCH (08:44)
[2017-09-25] MEDS ORDERED: Flecainide 50 MG TAB PO SCH ×2 (09:00→19:00)
--- NOTE | 2017-09-25 12:52 | PDOC.CTH ---
<Cheyanne Sheehan - Last Filed: 09/25/17 12:50> Cardiology Progress Note - Subjective The pt seen and examined. No overnight events. No cardiac complaints. She felt better after she was converted back to SR yesterday. Stress test was done today and the result is pending at this time. - Objective Vital Signs Temp Pulse Resp BP BP BP Pulse Ox 09/25/17 11:43 98.1 F 86 18 136/89 96 09/25/17 08:44 146 H 09/25/17 07:50 98.4 F 92 16 121/81 93 L 09/25/17 04:00 97.5 F L 76 14 115/83 93 L Weight 153 lb 14.4 oz 09/24/17 09/25/17 09/26/17 06:59 06:59 06:59 Intake Total 240 Output Total 200 1500 Balance -200 -1260 - Physical Examination General/Neuro: alert & oriented x3 Neck: no JVD present Lungs: CTA Heart: other: (Irregular) Abdomen: soft Extremities: other: (No edema) - Telemetry Telemetry Rhythm: Afib/Aflutter - Labs Result Diagrams: 09/24/17 04:36 09/24/17 04:36 Troponin/CKMB CK-MB (CK-2) 2.4 ng/mL (0-6.6) 09/19/17 17:00 Troponin I 0.013 ng/mL (< 0.028) 09/19/17 22:46 - Assessment/Plan 1. Afib?Aflutter with RVR - Cardioversionx3 on 09/24/17; Converted back to SR for 20mins then converted back to Afib/Aflutter; On Flicanide 50mg BID, Digoxin 0.25mg PO, Diltiazem 180mg daily and Lovenox 80mg BID; EP consult for Aflutter; Stress test today; Cont. to monitor on tele; 2. Acute hypoxic respiratory failure - stable with RA; managed by PCP/ Pulmonlogist 3. Rt pleural effusion s/p thoracentesis with 750ml out on 09/22/17; stable 4. HTN - stable with current med 5. Ex-smoker, quit in 07/2017 - Smoking cessation education given to the pt MAR reviewed * Echo on 09/21/17 showed EF 40-45%, mod LA dilated, mild MR, AR, and TR * [id number] score: 1 (female) need OAC. * EP consult for Aflutter Review of Systems - Review of Systems Constitutional: reports: no symptoms reported EENTM: reports: no symptoms reported Respiratory: reports: no symptoms reported Cardiac (ROS): reports: no symptoms reported ABD/GI: reports: no symptoms reported : reports: no symptoms reported Musculoskeletal: reports: no symptoms reported Skin: reports: no symptoms reported <Jaqueline Arita - Last Filed: 09/25/17 18:48> Cardiology Progress Note - Objective Vital Signs Temp Pulse Resp BP BP BP Pulse Ox 09/25/17 15:50 97.6 F 75 16 122/77 93 L 09/25/17 11:43 98.1 F 86 18 136/89 96 09/25/17 08:44 146 H 09/25/17 07:50 98.4 F 92 16 121/81 93 L Weight 153 lb 14.4 oz 09/24/17 09/25/17 09/26/17 06:59 06:59 06:59 Intake Total 240 Output Total 200 1500 Balance -200 -1260 - Labs Result Diagrams: 09/24/17 04:36 09/24/17 04:36 Troponin/CKMB CK-MB (CK-2) 2.4 ng/mL (0-6.6) 09/19/17 17:00 Troponin I 0.013 ng/mL (< 0.028) 09/19/17 22:46 - Assessment/Plan Pt. seen and eval. by me. i agree with the A/P by the [employer] SUPERVISOR. I will increase the Flecainide to 100mg bid. EP to see pt. for asistance with the arrhythmias. May consider repeat cardioversion after additional doses of Flecainide. Chest clear. Irreg/irreg.
--- NOTE | 2017-09-25 14:38 | NM ---
CARDIAC SPECT: CLINICAL HISTORY: 57-year-old female with chest pain, COPD, hypertension, atrial fibrillation, dyspnea, and palpitation s. TECHNIQUE: A myocardial perfusion scan was performed using the single isotope two day protocol with 32 mCi techn etium-99m sestamibi injected intravenously for both stress and rest images. Pharmacologic stress with Lexiscan was monitored and interpreted by Rigoberto Sheehan NP. FINDINGS: There is a fixed defect in the distal anteroseptal wall. No reversible defects are seen. GATED SPECT LVEF: 46%. WALL MOTION EXAM: Mild global hypokinesis. IMPRESSION: No evidence of reversible ischemia. POS: [facility]
--- NOTE | 2017-09-25 15:13 | PRG ---
DATE OF SERVICE: 09/25/2017 SERVICE: Pulmonary Medicine. INTERVAL HISTORY: The patient is doing fantastic from a cardiovascular and respiratory standpoint. She denies any current fevers, chills, nausea or vomiting. There has been no interval change to her condition. She has essentially returned to her usual state of health. She is breathing more comfort ably. She is not coughing up as much purulent sputum. PHYSICAL EXAMINATION: VITAL SIGNS: Afebrile, pulse 86, blood pressure 136 89, respirations 18 and saturation 96% on room a ir. GENERAL: The patient is awake and alert in no apparent distress. LUNGS: Excellent air entry with no prolonged expiratory phase, wheezing, rhonchi or crackles. HEART: Normal rate. Irregular. ABDOMEN: Soft, nontender and nondistended. Bowel sounds are positive. MUSCULOSKELETAL: No cyanosis or clubbing. No pitting in the bilateral lower extremities. NEUROLOGIC: Grossly nonfocal. IMAGING DATA: A stress test demonstrates no evidence of reversible ischemia. ASSESSMENT: 1. Acute hypoxic respiratory failure. 2. Community-acquired pneumonia, resolving. 3. Pleural effusion on the right, status post thoracentesis, transudate demonstrated. 4. Small pleural effusion on the left base on ultrasound. DISCUSSION AND PLAN: We will continue her antibiotics and other supportive measures. She failed car dioversion x1. EP consultation has been placed for a repeat cardioversion versus ablation. Pulmonar y Critical Care will continue to follow while the patient remains in house, intermittently.
--- NOTE | 2017-09-25 17:42 | EKG ---
Test Reason : POST CARDIOVERSION Blood Pressure : / mmHG Vent. Rate : 081 BPM Atrial Rate : 081 BPM P-R Int : 184 ms QRS Dur : 082 ms QT Int : 360 ms P-R-T Axes : 068 049 -42 degrees QTc Int : 418 ms Normal sinus rhythm Septal infarct (cited on or before 19-SEP-2017) Abnormal ECG When compared with ECG of 19-SEP-2017 17:00, Sinus rhythm has replaced Atrial fibrillation Vent. rate has decreased BY 98 BPM T wave inversion now evident in Anterior leads Nonspecific T wave abnormality, improved in Lateral leads Confirmed by DR. Rigoberto KELSEY ([id number]) on 09/25/2017 5:42:05 PM Referred By: THONG Confirmed By:DR. Rigoberto KELSEY
--- NOTE | 2017-09-25 22:02 | PDOC.PN ---
- Subjective Encounter Start Date: 09/25/17 Encounter Start Time: 07:30 Patient seen and examined. No new complaints. No overnight events - Objective MAR Reviewed: Yes Vital Signs & Weight: Vital Signs (12 hours) Temp Pulse Resp BP BP Pulse Ox 09/25/17 20:14 98.4 F 75 16 116/74 95 09/25/17 15:50 97.6 F 75 16 122/77 93 L 09/25/17 11:43 98.1 F 86 18 136/89 96 Weight Weight 153 lb 14.4 oz I&O: 09/24/17 09/25/17 09/26/17 06:59 06:59 06:59 Intake Total 240 720 Output Total 200 1500 900 Balance -200 -1260 -180 Result Diagrams: 09/26/17 05:06 09/26/17 03:30 EKG Reviewed by me: Yes (Tele Afib) Phys Exam - Physical Examination Constitutional: NAD Respiratory: no wheezing, no rhonchi Scat rales at bases Cardiovascular: no rub, irregular Gastrointestinal: soft, non-tender, positive bowel sounds Musculoskeletal: no edema Neurological: moves all 4 limbs Dx/Plan - Plan continue antibiotics, DVT proph w/SCDs IMPRESSION: 1. Acute hypoxic respiratory failure/CAP ?Pneumococcal 2. Rt pleural effusion s/p thoracentesis - transudate 3. Afib with RVR - on Cardizem/anticoag - failed CV 4. HTN 5. Other issues per PN PLAN: * Cont Cardizem/Flecainide * Stress test today * Await EP input * On Anticoag * AM labs * Cont to monitor * Cardio/Pulm following * Review of Systems - Review of Systems Respiratory: Cough, Dry. negative: Shortness of Breath, Hemoptysis, SOB with Excertion, Pleuritic Pain, Sputum, Wheezing Cardiovascular: negative: chest pain, palpitations, orthopnea, paroxysmal nocturnal dyspnea, edema, light headedness Gastrointestinal: negative: Nausea, Vomiting, Abdominal Pain, Diarrhea, Constipation, Melena, Hematochezia - Medications/Allergies Allergies/Adverse Reactions: Allergies Allergy/AdvReac Type Severity Reaction Status Date / Time No Known Drug Allergies Allergy Verified 09/19/17 21:23 Medications: Current Medications Acetaminophen (Tylenol) 650 mg PO Q4H PRN PRN Reason: Headache/Fever or Pain Last Admin: 09/23/17 12:34 Dose: 650 mg Albuterol/Ipratropium (Duoneb) 3 ml IPPB [id number] PRN PRN Reason: SOB &/or Wheezing Last Admin: 09/22/17 09:31 Dose: 3 ml Amoxicillin/Clavulanate Potassium (Augmentin) 875 mg PO Q12HR [facility] Stop: 09/29/17 09:01 Last Admin: 09/25/17 20:15 Dose: 875 mg Clonidine (Catapres) 0.1 mg PO Q4H PRN PRN Reason: Systolic BP > 180 Digoxin (Lanoxin) 0.25 mg PO QAM [facility] Last Admin: 09/25/17 08:44 Dose: 0.25 mg Diltiazem HCl (Cardizem Cd) 240 mg PO DAILY [facility] Last Admin: 09/25/17 08:44 Dose: 240 mg Enoxaparin Sodium (Lovenox) 80 mg SC 0900,2100 [facility] Last Admin: 09/25/17 20:16 Dose: 80 mg Flecainide Acetate (Tambocor) 100 mg PO Q12HR [facility] Ondansetron HCl (Zofran) 4 mg IVP Q6H PRN PRN Reason: Nausea/Vomiting Prednisone (Prednisone) 20 mg PO QAM-[facility] Stop: 09/28/17 08:01 Last Admin: 09/25/17 08:44 Dose: 20 mg Senna/Docusate Sodium (Senokot S) 1 tab PO BID [facility] Last Admin: 09/25/17 08:43 Dose: 1 tab Sodium Chloride (Flush - Normal Saline) 10 ml IVF Q12HR [facility] Last Admin: 09/25/17 20:17 Dose: 10 ml Sodium Chloride (Flush - Normal Saline) 10 ml IVF PRN PRN PRN Reason: Saline Flush
[2017-09-26 05:57] LABS: Hemoglobin 16.6 g/dL (12.0-16.0); Platelet Count 189 thou/uL (130-400)
[2017-09-26 06:10] LABS: Calc. Creatinine Clearance 111 mL/min (70-130); Estimated GFR-MDRD Greater than 90
--- NOTE | 2017-09-26 06:26 | CON ---
ELECTROPHYSIOLOGY CONSULTATION DATE OF CONSULTATION: 09/25/2017 REFERRING PHYSICIAN: Dr. Beth Arita. I am seeing Ms. Beltran at our [facility] telemetry floor as an electrophysiology analysis consultant. Her problems are: 1. Newly found atrial fibrillation. A. Atrial fibrillation, recurrent, despite cardioversion on 09/24/2017. B. Flecainide initiated. 2. Acute hypoxic respiratory failure, now improving. A. Status post thoracocentesis. B. History of COPD with 30-pack year history of smoking. C. Possible obstructive sleep apnea. 3. Cardiomyopathy. A. Initial echo on 09/19/2017, demonstrates LVEF of 40% to 45%. Normal right atrial, moderate left atrial dilation, mild MR, mild AI, mild TR. B. Lexiscan from 09/25/2017 shows LVEF of 46%. No ischemia or scar. 4. History of hypertension. 5. Possible diabetes. ALLERGIES: None noted. MEDICATIONS AT HOME: Included guaifenesin, albuterol, fluticasone, Isabel, Pulmicort and albuterol sulfate. SUBJECTIVE: Ms. Beltran is here with worsening respiratory status. For the last 3 months, she has not been doing well. Due to lack of insurance, she has not been seeking medical attention and eventually end up in the ER. She was noted to have a significant right pleural effusion and also was found to be in atrial fibrillation with rapid rates. Echo showed mild LV dysfunction. Pulmonary evaluation was also performed and thoracocentesis was done. Her pulmonary status much improved. She remains in atrial fibrillation despite attempted cardioversion by Dr. Arita. She was placed on flecainide. Stress test was negative. I was consulted for further management. REVIEW OF SYSTEMS: Rest of the review of systems otherwise unremarkable with no fever or chills, no cough, no stroke-like symptoms, no neurological deficit. Chronic dyspnea improving. Palpitations are milder. Does not pass out. No stroke-like symptoms. No bleeding issues are documented. PAST MEDICAL HISTORY: As above. She has no prior history of heart disease or heart attacks. She does not have a prior history of atrial fibrillation. SOCIAL HISTORY: She is a smoker. Denies EtOH or drug use. She works at [employer] and her is disabled. FAMILY HISTORY: Noncontributory, but significant for emphysema. OBJECTIVE DATA: VITAL SIGNS: Blood pressure is 122/77, heart rate is 75, respirations 16 and temperature 97.6 degrees Fahrenheit. GENERAL: This is an alert and oriented woman, in no apparent distress. NECK: Supple. Jugular veins are not distended. CHEST: Coarse without crackles. CARDIOVASCULAR: Heart sounds are regular to rate and rhythm. No murmur or gallop. ABDOMEN: Benign. Bowel sounds positive. EXTREMITIES: Lower extremities without edema, clubbing or cyanosis. Pulses are adequate. NEUROLOGIC: The patient is nonfocal. MUSCULOSKELETAL: No joint swelling or deformities. SKIN: Without rash. DATABASE: The EKG is reviewed. Reveals atrial fibrillation with rapid rates, initially narrow QRS is seen. Subsequent EKG done after cardioversion was transient sinus rhythm with left atrial enlargement. Now, telemetry strips reveal recurrent coarse atrial fibrillation. LABORATORY DATA: White cell count is 9.5, hemoglobin 14.9 and platelet count is 218. INR 1.2. Sodium 133, potassium 4, BUN is 20, creatinine was 0.77 and troponin I 0.13. BNP initially is 723. ASSESSMENT AND PLAN: Ms. Beltran is a pleasant 57-year-old woman with a prior history of smoking, likely chronic obstructive pulmonary disease, who presented with progressive respiratory distress. She has been in atrial fibrillation, which was treated with digoxin, p.o. diltiazem as well as subcutaneous Lovenox for anticoagulation. She did cardiovert only for 10 minutes, early recurrence of atrial fibrillation was seen, hence she was placed on flecainide. My plan at this point: 1. Recurrence of present atrial fibrillation and failed cardioversion. At this point, it is reasonable to continue rate control. We could consider cardioversion after being loaded with flecainde (may be more successful with a higher dose 100 BID) and her respiratory status improved. Alternative antiarrhythmics could be Multaq and sotalol. 2. We also discussed the option of pulmonary venous isolation procedure, although likely it would be more preferred to consider as an outpatient after her pulmonary status completely improve. 3. Anticoagulation. She will benefit from oral anticoagulants on discharge. 4. Pulmonary status, improving. Continue stabilization. 5. Mild LV dysfunction. Standard heart failure therapy as per Dr. Arita. For now, not on beta-elvia since possible bronchospastic component. Thank you for the consult. We will follow with you. I will see this patient as an outpatient as well. [facility]
[2017-09-26] MEDS ORDERED: Diprivan 20 ML ONE (09:16)
[2017-09-26] MEDS: predniSONE 20 MG TAB PO SCH (10:16)
[2017-09-26] MEDS: Digoxin 0.25 MG TAB PO SCH (10:17)
[2017-09-26] MEDS: Senokot S 8.6-50 MG TAB PO SCH ×2 (10:17→20:21)
[2017-09-26] MEDS: Amoxicillin/Potassium Clav 875 MG TAB PO SCH ×2 (10:17→20:20)
[2017-09-26] MEDS: Flecainide 50 MG TAB PO SCH ×2 (10:19→20:20)
[2017-09-26] MEDS: Enoxaparin Sodium 80 MG/0.8 ML SYRINGE SC SCH (10:19)
--- NOTE | 2017-09-26 10:30 | OP ---
DATE OF PROCEDURE: 09/26/2017 INDICATION FOR PROCEDURE: A 57-year-old female who was admitted with atrial fibrillation with rapid ventricular response was treated medically, also had a pleural effusion. She had had a stress test w hich was unremarkable. Echocardiogram showed mild decrease in left ventricular systolic function. Bárbara mayfield had attempted to electro cardiovert her previously, but was unable to maintain sinus rhythm. She tato anglin was started on antiarrhythmic medication in the form of flecainide which is addition to her dilti azem and digoxin. She had been given 3 doses of flecainide and was advised to undergo repeat attempt at cardioversion of her atrial fibrillation back to sinus rhythm. She was taken to recovery area to day where she underwent the procedure without difficulty or complication. She was given short acting propofol for the procedure and using 1 attempt at 200 joules she was successfully converted back to sinus rhythm. She at this time has continued to maintain sinus rhythm. We will watch her today. Ho pefully she can be discharged later today or early tomorrow morning.
--- NOTE | 2017-09-26 10:30 | PDOC.PN ---
- Subjective Encounter Start Date: 09/26/17 Encounter Start Time: 10:28 no acute night events - Objective Vital Signs & Weight: Vital Signs (12 hours) Temp Pulse Resp BP Pulse Ox 09/26/17 07:54 98.5 F 100 16 129/96 H 97 09/26/17 04:19 97.5 F L 87 20 134/89 97 Weight Weight 161 lb 4.8 oz I&O: 09/25/17 09/26/17 09/27/17 06:59 06:59 06:59 Intake Total 240 1630 Output Total 1500 1350 Balance -1260 280 Result Diagrams: 09/26/17 05:06 09/26/17 03:30 Phys Exam - Physical Examination Constitutional: NAD HEENT: PERRLA Neck: no nodes, supple mild rales Cardiovascular: irregular Gastrointestinal: soft, non-tender, no distention Musculoskeletal: pulses present Dx/Plan (1) Atrial fibrillation with RVR Code(s): I48.91 - UNSPECIFIED ATRIAL FIBRILLATION Status: Acute (2) Acute respiratory failure with hypoxia Code(s): J96.01 - ACUTE RESPIRATORY FAILURE WITH HYPOXIA Status: Acute (3) Pleural effusion Code(s): J90 - PLEURAL EFFUSION, NOT ELSEWHERE CLASSIFIED Status: Acute (4) HTN (hypertension) Code(s): I10 - ESSENTIAL (PRIMARY) HYPERTENSION Status: Acute - Plan cont current plan of care, nephrology social worker * . s/p failed cardioversion s/p thoracocentesis on therapeutic lovenox. will transition to po soon continue flecanide follow recs from cardiology EP following as well
--- NOTE | 2017-09-26 15:26 | PDOC.CTH ---
Cardiology Progress Note - Subjective The pt seen and examined. No overnight events. No cardiac complaints. S/p re- Cardioversion today and remains in SR. - Objective Vital Signs Temp Pulse Resp BP BP Pulse Ox 09/26/17 11:05 97.7 F 67 24 H 127/73 98 09/26/17 10:17 76 09/26/17 10:16 76 134/94 H 09/26/17 10:05 96.8 F L 76 16 134/94 H 95 09/26/17 07:54 98.5 F 100 16 129/96 H 97 09/26/17 04:19 97.5 F L 87 20 134/89 97 Weight 161 lb 4.8 oz 09/25/17 09/26/17 09/27/17 06:59 06:59 06:59 Intake Total 240 1630 Output Total 1500 1350 Balance -1260 280 - Physical Examination General/Neuro: alert & oriented x3 Neck: no JVD present Lungs: CTA Heart: RRR Abdomen: soft Extremities: other: (No edema) - Telemetry Telemetry Rhythm: SR 60-70s - Labs Result Diagrams: 09/26/17 05:06 09/26/17 03:30 Troponin/CKMB CK-MB (CK-2) 2.4 ng/mL (0-6.6) 09/19/17 17:00 Troponin I 0.013 ng/mL (< 0.028) 09/19/17 22:46 - Assessment/Plan 1. Afib/Aflutter with RVR - Cardioversionx3 on 09/24/17 and Re-Cardioversion with Flecainide 100mg BID on 09/26/17; remains in SR with HR 60-70s with Fecaine 100 mg BID, Digoxin 0.25mg PO, Diltiazem 180 mg daily and ASA 325mg daily; Stop Lovenox 80mg BID and start ASA 325mg daily; Cont. to monitor on tele ; 2. Acute hypoxic respiratory failure - stable with RA; managed by PCP/ Pulmonlogist 3. Rt pleural effusion s/p thoracentesis with 750ml out on 09/22/17; stable 4. HTN - stable with current med 5. Ex-smoker, quit in 07/2017 - Smoking cessation education given to the pt MAR reviewed * Echo on 09/21/17 showed EF 40-45%, mod LA dilated, mild MR, AR, and TR * [id number] score: 1 (female) need OAC. * If she remains in SR till this PM, the pt can be d/c home. The pt will f/u with Dr Arita' office within a few wks with ECG check. Review of Systems - Review of Systems Constitutional: reports: no symptoms reported EENTM: reports: no symptoms reported Respiratory: reports: no symptoms reported Cardiac (ROS): reports: no symptoms reported ABD/GI: reports: no symptoms reported : reports: no symptoms reported Musculoskeletal: reports: no symptoms reported
--- NOTE | 2017-09-26 15:48 | PRG ---
ELECTROPHYSIOLOGY FOLLOWUP NOTE DATE OF SERVICE: 09/26/2017 SUBJECTIVE: Ms. Beltran seems to be doing well after her cardioversion. She is maintaining sinus rhythm , feeling better. OBJECTIVE DATA: VITAL SIGNS: Blood pressure is 134/94, heart rate 76 and respirations 12. The patient is afebrile. GENERAL: This is an alert and oriented woman in no apparent distress. NECK: Supple. Jugular vein is not distended. CHEST: Coarse. No crackles. CARDIOVASCULAR: Heart sounds are regular to rate and rhythm. No murmur or gallop. ABDOMEN: Benign. Bowel sounds positive. EXTREMITIES: Lower extremities without edema, clubbing or cyanosis. IMAGING DATA: Telemetry strips reveal restored sinus rhythm after cardioversion, previously atrial f ibrillation. ASSESSMENT AND PLAN: Ms. Beltran is a 57-year-old woman who has presented with respiratory issues, also mild left ventricular dysfunction. She already had a cardioversion, but she did not maintain sinus r hythm. Eventually, she was placed on flecainide and a second cardioversion, so far maintaining sinus rhythm. She is to continue flecainide 100 mg q.12 hours. She is still on Lovenox, likely need to transition to Eliquis. So far, no proarrhythmia noted. Continue flecainide as it is. Risks and benefits of the arrhythmia medication is discussed with the patient. Again she would benefit from an oral anticoagulant as well versus Coumadin. I have to see her back as an outpatient.
--- NOTE | 2017-09-26 16:12 | PRG ---
DATE OF SERVICE: 09/26/2017 SERVICE: Pulmonary Medicine. INTERVAL HISTORY: The patient doing great from a cardiovascular and respiratory standpoint. She den ies any chest pain or shortness of breath. Cough continues to improve. Her breathing is much better . Otherwise, there has been notable change to her condition. PHYSICAL EXAMINATION: VITAL SIGNS: Afebrile, pulse 69, blood pressure 119/72, respirations 14, and saturation 95% on room air. GENERAL: The patient is awake, alert, in no apparent distress. LUNGS: Excellent air entry with no prolonged expiratory phase, wheezing, rhonchi, or crackles. HEART: Normal rate, regular. ABDOMEN: Soft, nontender, nondistended. Bowel sounds positive. MUSCULOSKELETAL: No cyanosis or clubbing. No pitting in the bilateral lower extremities. NEUROLOGIC: Grossly nonfocal. LABORATORY DATA: Hemoglobin 16.6, platelets 189,000. Basic metabolic profile, magnesium, and phosph orus are unremarkable. Creatinine 0.66. Microbiology is negative to date. ASSESSMENT: 1. Acute hypoxic respiratory failure, resolved. 2. Community-acquired pneumonia, resolving. 3. Pleural effusion on the right, status post thoracentesis, transudate demonstrated. 4. Small pleural effusion on the left. Based on all bedside ultrasound. DISCUSSION AND PLAN: Antibiotics will be stopped after 5-7 days. I would like her to follow up with me in the outpatient setting in roughly 4 weeks with a repeat chest x-ray. From a purely respirator y perspective, she is stable for discharge from the hospital. Dr. Rouse will follow her through the weekend if she remains in house.
[2017-09-26 19:40] VITALS: BP 148/97; TEMP 97.9
--- NOTE | 2017-09-27 07:24 | DIS ---
DISCHARGE DIAGNOSES: 1. Acute hypoxic respiratory failure secondary to community-acquired pneumonia with pneumococcal amanda teria. 2. Right-sided pleural effusion, status post thoracocentesis. 3. Atrial fibrillation with rapid ventricular response on Cardizem/anticoagulation with failed cardi oversion. 4. Hypertension. HOSPITAL COURSE: While patient was in hospital, the patient was seen by both Pulmonology and Cardiol ruthy. With regard to Pulmonology, the patient was started on IV antibiotics, which was then transitio callie to oral antibiotics prior to discharge. The patient was also placed on steroids as well, for whi ch the patient was going to take for a total of 5 more days leading for couple of more days of predni sone that she will continue at home with. She had improved significantly from pulmonary point of vie w, was satting well on room air without any new symptoms or further interventions required. She stat ed she had a thoracocentesis, which tima transudative fluid. No further thoracocentesis was needed a nd no further intervention is required from Pulmonology point of view. From Cardiology point of view , the patient came in with atrial fibrillation with RVR, for which the patient was placed on Cardizem as well as therapeutic Lovenox. Attempt was made to cardiovert the patient back into normal sinus r hythm; however, this was unsuccessful, so the patient was placed on antiarrhythmic medication with fl ecainide. Along with flecainide, she was also on therapeutic Lovenox, which was then thought that th e patient could be switched to Eliquis. Due to the patient being on Ensure, the patient will be give n a 30-day supply of Eliquis, and as per the HR team, patient will be followed up on Friday as today is Friday. She will be followed up on Friday with regard to getting Eliquis situated so that she can continue taking this at home. She was also instructed to follow up with her primary care physician as well as her demi chef and parts sales associate in 1 week. Therefore, if Eliquis is still an issue, sh e can be switched to Coumadin at that time. Otherwise, the patient's heart rate was rate controlled and she was much better from a clinical point of view, and we are comfortable discharging the patient home with the appropriate medications. All questions were answered prior to discharge and patient w ill be discharged home later this evening in stable condition. DISCHARGE CONDITION: Much improved when she first came in. DISCHARGE ACTIVITY: As tolerated. DISCHARGE DISPOSITION: To home. DISCHARGE MEDICATIONS: Please see medication reconciliation list. FOLLOW APPOINTMENT: Patient will follow up with our primary care physician in 1 week, Dr. Maxwell in 1 week [address] as Dr. Stringer in 1 week as well. DISCHARGE PLAN: Discharge plan was greater than 30 minutes.
[2017-09-27] MEDS ORDERED: Aspirin 325 mg Enteric Coated Tablet PO SCH (09:00)
== END 2017-09-26 21:22 | disposition home or self-care (01) | DRG 193 ==
LOC: ERS 16:41 → IMCU/EMU 19:00 → 2NO 09-22 17:20
PROVIDERS: ADMIT Internal Medicine; ATTEND Internal Medicine
PROC: 0W993ZX Drainage of Right Pleural Cavity, Percutaneous Approach, Diagnostic (ICD-10-PCS; 2017-09-22)
PROC: 5A2204Z Restoration of Cardiac Rhythm, Single (ICD-10-PCS; 2017-09-24)
PROC: B246ZZ4 Ultrasonography of Right and Left Heart, Transesophageal (ICD-10-PCS; 2017-09-24)
PROC: 5A2204Z Restoration of Cardiac Rhythm, Single (ICD-10-PCS; principal; 2017-09-26)
DX: J13 Pneumonia due to Streptococcus pneumoniae (principal); J96.01 Acute respiratory failure with hypoxia; J90 Pleural effusion, not elsewhere classified; I42.9 Cardiomyopathy, unspecified; J98.11 Atelectasis; J44.9 Chronic obstructive pulmonary disease, unspecified; I08.3 Combined rheumatic disorders of mitral, aortic and tricuspid valves; I48.2 Chronic atrial fibrillation; F17.210 Nicotine dependence, cigarettes, uncomplicated; I10 Essential (primary) hypertension; F41.9 Anxiety disorder, unspecified; F32.9 Major depressive disorder, single episode, unspecified
CPT/HCPCS: 36415; 71045; 71046; 71275; 78452; 80048; 80053; 80069; 81003; 82553; 82945; 83036; 83615; 83735; 83880; 83986; 84157; 84484; 85014; 85018; 85025; 85049; 85060; 85610; 85730; 87070; 87116; 87205; 87206; 88112; 88305; 89051; 92960; 93005; 93010; 93017; 93306; 93312; 94640; 96361; 96365; 96366; 96372; 96375; 96376; A4216; A9500; J0153; J1650; J2001; J2270; J2704; J2785; J3010; J7050; J7506

== ENCOUNTER 2021-08-06 17:30 | Inpatient (IN) | payer SELFPAY ==
[2021-08-06] MEDS ORDERED: Ondansetron PF 4 MG/2 ML Vial IVP PRN (20:21)
[2021-08-06] MEDS ORDERED: Acetaminophen 325 MG TAB PO PRN (20:21)
[2021-08-06] MEDS ORDERED: Ondansetron ODT 4 MG TAB PO PRN (20:21)
[2021-08-06] MEDS ORDERED: Acetaminophen 650 MG Suppository PR PRN (20:21)
[2021-08-06] MEDS: Diltiazem 125 MG in Sodium Chloride 0.9% 100 ML IVPB SCH (21:24)
[2021-08-07 06:23] LABS: #Basophils 0.1 thou/uL (0.0-0.2); #Eosinphils 0.1 thou/uL (0.0-0.7); #Lymphocytes 1.5 thou/uL (1.20-3.40); #Monocytes 0.8 thou/uL (0.11-0.59); #Neutrophils 5.3 thou/uL (1.40-6.50); %Basophils 0.9 % (0.0-1.0); %Eosinophils 1.9 % (0.0-10.0); %Lymphocytes 19.4 % (21.0-51.0); %Monocytes 9.6 % (0.0-10.0); %Neutrophils 68.3 % (42.0-75.0); Hemoglobin 15.3 g/dL (12.0-16.0); Mean Corpuscular HGB CONC 32.3 g/dL (32.0-36.0); Mean Corpuscular Hemoglobin 33.2 pg (27.0-31.0); Mean Platelet Volume 9.7 fL (7.4-10.4); Platelet Count 285 thou/uL (130-400); RBC Distribution Width 12.4 % (11.5-14.5); White Blood Cell (WBC) Count 7.8 thou/uL (4.8-10.8)
[2021-08-07 06:53] LABS: ALT (SGPT) 67 U/L (8-55); AST (SGOT) 68 U/L (5-34); Albumin 4.1 g/dL (3.5-5.0); Alkaline Phosphatase 59 U/L (40-110); BUN (Urea Nitrogen) 35 mg/dL (9.8-20.1); Bilirubin, Total 2.4 mg/dL (0.2-1.2); Calc. Creatinine Clearance 88 mL/min (70-130); Calcium 9.7 mg/dL (7.8-10.44); Carbon Dioxide 14 mmol/L (22-29); Chloride 109 mmol/L (98-107); Cholesterol 175 mg/dl (< 200 Desired); Globulin 3.7 g/dL (2.4-3.5); Glucose 107 mg/dL (70-105); HDL Cholesterol 35 mg/dL (>60 Neg Risk); LDL Cholesterol, Calculated 111 mg/dL; Potassium 4.2 mmol/L (3.5-5.1); Protein, Total 7.8 g/dL (6.0-8.3); Sodium 141 mmol/L (136-145); Triglycerides 262 mg/dL (Less than 150)
[2021-08-07 06:55] LABS: Anion Gap 22 mmol/L (10-20)
[2021-08-07] MEDS ORDERED: Lorazepam 2 MG/ML VIAL SLOW IVP PRN (08:24)
[2021-08-07] MEDS ORDERED: Dexamethasone 10 MG/ML VIAL SLOW IVP SCH (09:00)
[2021-08-07] MEDS: Ascorbic Acid 500 mg Chewable Tablet PO SCH (09:58)
[2021-08-07] MEDS: Cholecalciferol (Vitamin D3) 400 UNITS TAB PO SCH (09:58)
[2021-08-07] MEDS: Zinc Sulfate 220 MG CAP PO SCH (09:58)
[2021-08-07] MEDS ORDERED: Albuterol 200 PUFF (6.7GM INHALER) INH PRN (11:51)
[2021-08-07] MEDS: Diltiazem 125 MG in Sodium Chloride 0.9% 100 ML IVPB SCH (13:45)
[2021-08-07] MEDS: Atorvastatin Calcium 40 MG TAB PO SCH (19:50)
[2021-08-08 06:15] LABS: Hemoglobin 15.5 g/dL (12.0-16.0); Mean Corpuscular HGB CONC 33.7 g/dL (32.0-36.0); Mean Corpuscular Hemoglobin 34.1 pg (27.0-31.0); Mean Platelet Volume 9.4 fL (7.4-10.4); Platelet Count 287 thou/uL (130-400); RBC Distribution Width 12.5 % (11.5-14.5); Red Blood Cell (RBC) Count 4.56 mill/uL (4.20-5.40); White Blood Cell (WBC) Count 7.1 thou/uL (4.8-10.8)
[2021-08-08 06:40] LABS: Anion Gap 18 mmol/L (10-20); BUN (Urea Nitrogen) 36 mg/dL (9.8-20.1); Calc. Creatinine Clearance 99 mL/min (70-130); Carbon Dioxide 21 mmol/L (22-29); Chloride 110 mmol/L (98-107); Glucose 111 mg/dL (70-105); Potassium 3.9 mmol/L (3.5-5.1); Sodium 145 mmol/L (136-145)
[2021-08-08] MEDS: Cholecalciferol (Vitamin D3) 400 UNITS TAB PO SCH (07:27)
[2021-08-08] MEDS: Ascorbic Acid 500 mg Chewable Tablet PO SCH (07:27)
[2021-08-08] MEDS: Zinc Sulfate 220 MG CAP PO SCH (07:27)
[2021-08-08] MEDS: Diltiazem 125 MG in Sodium Chloride 0.9% 100 ML IVPB SCH ×2 (09:47→23:39)
[2021-08-08] MEDS: Atorvastatin Calcium 40 MG TAB PO SCH (19:53)
[2021-08-09] MEDS: Ascorbic Acid 500 mg Chewable Tablet PO SCH (09:03)
[2021-08-09] MEDS: Cholecalciferol (Vitamin D3) 400 UNITS TAB PO SCH (09:03)
[2021-08-09] MEDS: Zinc Sulfate 220 MG CAP PO SCH (09:03)
[2021-08-09] MEDS: Diltiazem 125 MG in Sodium Chloride 0.9% 100 ML IVPB SCH (22:01)
[2021-08-09] MEDS: Atorvastatin Calcium 40 MG TAB PO SCH (22:01)
[2021-08-10] MEDS: Zinc Sulfate 220 MG CAP PO SCH (09:41)
[2021-08-10] MEDS: Ascorbic Acid 500 mg Chewable Tablet PO SCH (09:41)
[2021-08-10] MEDS: Cholecalciferol (Vitamin D3) 400 UNITS TAB PO SCH (09:41)
[2021-08-10] MEDS: Diltiazem 125 MG in Sodium Chloride 0.9% 100 ML IVPB SCH (14:39)
[2021-08-10] MEDS ORDERED: Metoprolol Tartrate 25 MG TAB PO SCH (16:17)
[2021-08-10] MEDS: Atorvastatin Calcium 40 MG TAB PO SCH (21:39)
[2021-08-11] MEDS: Diltiazem 125 MG in Sodium Chloride 0.9% 100 ML IVPB SCH ×2 (06:08→18:25)
[2021-08-11] MEDS: Metoprolol Tartrate 5 MG/5 ML VIAL IVP PRN ×3 (06:25→13:34)
[2021-08-11] MEDS: Ascorbic Acid 500 mg Chewable Tablet PO SCH ×2 (09:36→10:09)
[2021-08-11] MEDS: Cholecalciferol (Vitamin D3) 400 UNITS TAB PO SCH ×2 (09:36→10:09)
[2021-08-11] MEDS: Zinc Sulfate 220 MG CAP PO SCH ×2 (09:36→09:46)
[2021-08-11] MEDS ORDERED: hydrALAZINE 20 MG/ML VIAL SLOW IVP PRN (12:53)
[2021-08-11] MEDS ORDERED: Metoprolol Tartrate 5 MG/5 ML VIAL IVP SCH (18:00)
[2021-08-11] MEDS: Digoxin 0.5 MG/2 ML AMP SLOW IVP SCH (18:24)
[2021-08-11] MEDS: Atorvastatin Calcium 40 MG TAB PO SCH (20:49)
[2021-08-12] MEDS: Digoxin 0.5 MG/2 ML AMP SLOW IVP SCH ×3 (00:59→11:01)
[2021-08-12] MEDS: Cholecalciferol (Vitamin D3) 400 UNITS TAB PO SCH (11:22)
[2021-08-12] MEDS: Zinc Sulfate 220 MG CAP PO SCH (11:23)
[2021-08-12] MEDS: Ascorbic Acid 500 mg Chewable Tablet PO SCH (11:23)
[2021-08-12] MEDS: Diltiazem 125 MG in Sodium Chloride 0.9% 100 ML IVPB SCH (19:20)
[2021-08-12] MEDS: Sodium Chloride 0.9% 1,000 ML IV SCH (19:21)
[2021-08-12] MEDS: Atorvastatin Calcium 40 MG TAB PO SCH (20:54)
[2021-08-13] MEDS: Diltiazem 125 MG in Sodium Chloride 0.9% 100 ML IVPB SCH ×2 (06:50→20:56)
[2021-08-13] MEDS: Digoxin 0.5 MG/2 ML AMP SLOW IVP SCH (10:06)
[2021-08-13] MEDS: Cholecalciferol (Vitamin D3) 400 UNITS TAB PO SCH (10:06)
[2021-08-13] MEDS: Ascorbic Acid 500 mg Chewable Tablet PO SCH (10:06)
[2021-08-13] MEDS: Zinc Sulfate 220 MG CAP PO SCH (10:07)
[2021-08-13] MEDS: Metoprolol Tartrate 5 MG/5 ML VIAL IVP PRN ×2 (13:33→22:31)
[2021-08-13] MEDS: Sodium Chloride 0.9% 1,000 ML IV SCH (15:53)
[2021-08-13] MEDS: Atorvastatin Calcium 40 MG TAB PO SCH ×2 (20:56→21:57)
[2021-08-13] MEDS ORDERED: Morphine 4 MG/ML VIAL SLOW IVP SCH (23:15)
[2021-08-14 05:46] LABS: ALT (SGPT) 239 U/L (8-55); AST (SGOT) 128 U/L (5-34); Albumin 3.9 g/dL (3.5-5.0); Alkaline Phosphatase 86 U/L (40-110); Anion Gap 15 mmol/L (10-20); BUN (Urea Nitrogen) 35 mg/dL (9.8-20.1); Bilirubin, Total 2.3 mg/dL (0.2-1.2); Calc. Creatinine Clearance 90 mL/min (70-130); Calcium 9.5 mg/dL (7.8-10.44); Carbon Dioxide 24 mmol/L (22-29); Chloride 120 mmol/L (98-107); Globulin 3.2 g/dL (2.4-3.5); Glucose 102 mg/dL (70-105); Iron 76 ug/dL (50-170); Iron Binding Capacity, Total 231 mcg/dL (265-497); Potassium 3.9 mmol/L (3.5-5.1); Protein, Total 7.1 g/dL (6.0-8.3); Sodium 155 mmol/L (136-145)
[2021-08-14 06:02] LABS: HBSAB Concentration Less than 8.00 mIU/mL; HBSAg Index 0.25 S/CO (0-0.99); Hep B Surf AB Non-Reactive (NonReactive); Hep B Surf Ag Non-Reactive S/CO (NonReactive); Hep C IgG Ab Non-Reactive (NonReactive); Hep C Index 0.13 S/CO (0-0.79)
[2021-08-14] MEDS: Lorazepam 2 MG/ML VIAL SLOW IVP PRN ×2 (08:58→22:14)
[2021-08-14] MEDS: Diltiazem 125 MG in Sodium Chloride 0.9% 100 ML IVPB SCH (09:03)
[2021-08-14] MEDS: Ascorbic Acid 500 mg Chewable Tablet PO SCH (12:00)
[2021-08-14] MEDS: Digoxin 0.5 MG/2 ML AMP SLOW IVP SCH (12:00)
[2021-08-14] MEDS: Cholecalciferol (Vitamin D3) 400 UNITS TAB PO SCH (12:00)
[2021-08-14] MEDS: Zinc Sulfate 220 MG CAP PO SCH (12:01)
[2021-08-14] MEDS: Amino Acids 4.25 %/Dextrose 5% 1,000 ML IV SCH (16:03)
[2021-08-14] MEDS ORDERED: Metoprolol Tartrate 5 MG/5 ML VIAL IVP PRN (17:13)
[2021-08-14] MEDS: Atorvastatin Calcium 40 MG TAB PO SCH (20:30)
[2021-08-15] MEDS: Lorazepam 2 MG/ML VIAL SLOW IVP PRN ×2 (03:57→19:01)
[2021-08-15] MEDS: Amino Acids 4.25 %/Dextrose 5% 1,000 ML IV SCH ×2 (08:14→21:37)
[2021-08-15] MEDS: Zinc Sulfate 220 MG CAP PO SCH (08:21)
[2021-08-15] MEDS: Cholecalciferol (Vitamin D3) 400 UNITS TAB PO SCH (08:21)
[2021-08-15] MEDS: Ascorbic Acid 500 mg Chewable Tablet PO SCH (08:21)
[2021-08-15] MEDS: Digoxin 0.5 MG/2 ML AMP SLOW IVP SCH (10:33)
[2021-08-15] MEDS: Metoprolol Tartrate 5 MG/5 ML VIAL IVP SCH ×3 (13:31→21:04)
[2021-08-15 15:10] VITALS: BMI 24.5
[2021-08-15] MEDS: Atorvastatin Calcium 40 MG TAB PO SCH (21:01)
[2021-08-16] MEDS: Metoprolol Tartrate 5 MG/5 ML VIAL IVP SCH ×3 (00:36→09:00)
[2021-08-16] MEDS ORDERED: Digoxin 0.5 MG/2 ML AMP SLOW IVP SCH (05:11)
[2021-08-16 05:34] LABS: #Eosinphils 0.2 thou/uL (0.0-0.7); #Lymphocytes 1.5 thou/uL (1.20-3.40); #Monocytes 0.2 thou/uL (0.11-0.59); #Neutrophils 5.3 thou/uL (1.40-6.50); %Basophils 0.5 % (0.0-1.0); %Eosinophils 2.3 % (0.0-10.0); %Lymphocytes 20.3 % (21.0-51.0); %Neutrophils 73.9 % (42.0-75.0); Hemoglobin 13.5 g/dL (12.0-16.0); Mean Corpuscular HGB CONC 33.3 g/dL (32.0-36.0); Mean Corpuscular Hemoglobin 34.8 pg (27.0-31.0); Mean Platelet Volume 10.7 fL (7.4-10.4); Platelet Count 180 thou/uL (130-400); RBC Distribution Width 12.3 % (11.5-14.5); Red Blood Cell (RBC) Count 3.87 mill/uL (4.20-5.40); White Blood Cell (WBC) Count 7.2 thou/uL (4.8-10.8)
[2021-08-16 05:50] LABS: ALT (SGPT) 228 U/L (8-55); AST (SGOT) 127 U/L (5-34); Albumin 3.5 g/dL (3.5-5.0); Alkaline Phosphatase 80 U/L (40-110); Anion Gap 12 mmol/L (10-20); BUN (Urea Nitrogen) 31 mg/dL (9.8-20.1); Bilirubin, Total 2.5 mg/dL (0.2-1.2); Calc. Creatinine Clearance 96 mL/min (70-130); Calcium 8.9 mg/dL (7.8-10.44); Carbon Dioxide 23 mmol/L (22-29); Chloride 114 mmol/L (98-107); Globulin 3.1 g/dL (2.4-3.5); Glucose 94 mg/dL (70-105); Potassium 3.4 mmol/L (3.5-5.1); Protein, Total 6.6 g/dL (6.0-8.3); Sodium 146 mmol/L (136-145)
[2021-08-16] MEDS: Potassium Chloride 20 MEQ in Premix Bag 1 BAG IVPB SCH ×2 (06:35→06:36)
[2021-08-16] MEDS: Diltiazem 125 MG in Sodium Chloride 0.9% 100 ML IVPB SCH (06:51)
[2021-08-16] MEDS: Amino Acids 4.25 %/Dextrose 5% 1,000 ML IV SCH (08:59)
[2021-08-16] MEDS: Zinc Sulfate 220 MG CAP PO SCH (09:01)
[2021-08-16] MEDS: Ascorbic Acid 500 mg Chewable Tablet PO SCH (09:01)
[2021-08-16] MEDS: Cholecalciferol (Vitamin D3) 400 UNITS TAB PO SCH (09:01)
[2021-08-16] MEDS: Lorazepam 2 MG/ML VIAL SLOW IVP PRN (09:39)
[2021-08-16] MEDS ORDERED: Metoprolol Tartrate 5 MG/5 ML VIAL IVP SCH (12:00)
[2021-08-16] MEDS: Thiamine HCl 200 MG/2 ML VIAL SLOW IVP SCH (13:01)
[2021-08-16] MEDS: Atorvastatin Calcium 40 MG TAB PO SCH (20:22)
[2021-08-16] MEDS: Amino Acids 4.25 %/Dextrose 5% 2,000 ML IV SCH (21:57)
[2021-08-17 06:54] LABS: INR-International Normal Ratio 1.1; Prothrombin Time 13.9 sec (12.0-14.7)
[2021-08-17 07:10] LABS: ALT (SGPT) 161 U/L (8-55); AST (SGOT) 67 U/L (5-34); Albumin 3.2 g/dL (3.5-5.0); Alkaline Phosphatase 76 U/L (40-110); Anion Gap 10 mmol/L (10-20); BUN (Urea Nitrogen) 24 mg/dL (9.8-20.1); Bilirubin, Total 1.9 mg/dL (0.2-1.2); Calc. Creatinine Clearance 114 mL/min (70-130); Calcium 8.6 mg/dL (7.8-10.44); Carbon Dioxide 19 mmol/L (22-29); Chloride 112 mmol/L (98-107); Globulin 3.2 g/dL (2.4-3.5); Glucose 109 mg/dL (70-105); Potassium 3.5 mmol/L (3.5-5.1); Protein, Total 6.4 g/dL (6.0-8.3); Sodium 137 mmol/L (136-145)
[2021-08-17] MEDS: Aspirin 300 MG Suppository PR SCH ×2 (09:17→09:38)
[2021-08-17] MEDS: Ascorbic Acid 500 mg Chewable Tablet PO SCH (09:39)
[2021-08-17] MEDS: Zinc Sulfate 220 MG CAP PO SCH (09:40)
[2021-08-17] MEDS: Cholecalciferol (Vitamin D3) 400 UNITS TAB PO SCH (09:40)
[2021-08-17] MEDS: Diltiazem 125 MG in Sodium Chloride 0.9% 100 ML IVPB SCH (09:48)
[2021-08-17] MEDS: Thiamine HCl 200 MG/2 ML VIAL SLOW IVP SCH (14:23)
[2021-08-17] MEDS: Atorvastatin Calcium 40 MG TAB PO SCH (21:57)
[2021-08-17] MEDS: Amino Acids 4.25 %/Dextrose 5% 2,000 ML IV SCH (22:41)
[2021-08-18] MEDS: Diltiazem 125 MG in Sodium Chloride 0.9% 100 ML IVPB SCH ×2 (02:25→20:20)
[2021-08-18 06:00] LABS: Anion Gap 12 mmol/L (10-20); BUN (Urea Nitrogen) 20 mg/dL (9.8-20.1); Calc. Creatinine Clearance 83 mL/min (70-130); Calcium 8.6 mg/dL (7.8-10.44); Carbon Dioxide 19 mmol/L (22-29); Chloride 107 mmol/L (98-107); Glucose 117 mg/dL (70-105); Potassium 3.1 mmol/L (3.5-5.1); Sodium 135 mmol/L (136-145)
[2021-08-18 06:06] LABS: #Eosinphils 0.2 thou/uL (0.0-0.7); #Lymphocytes 1.7 thou/uL (1.20-3.40); #Monocytes 0.4 thou/uL (0.11-0.59); #Neutrophils 6.3 thou/uL (1.40-6.50); %Basophils 0.2 % (0.0-1.0); %Eosinophils 2.4 % (0.0-10.0); %Lymphocytes 19.3 % (21.0-51.0); %Monocytes 4.7 % (0.0-10.0); %Neutrophils 73.4 % (42.0-75.0); Hemoglobin 14.2 g/dL (12.0-16.0); Mean Corpuscular HGB CONC 33.1 g/dL (32.0-36.0); Mean Platelet Volume 11.6 fL (7.4-10.4); Platelet Count 127 thou/uL (130-400); Platelet Morphology Comment Appears Decreased; RBC Distribution Width 12.1 % (11.5-14.5); Red Blood Cell (RBC) Count 4.19 mill/uL (4.20-5.40); White Blood Cell (WBC) Count 8.6 thou/uL (4.8-10.8)
[2021-08-18] MEDS: Ascorbic Acid 500 mg Chewable Tablet PO SCH (08:29)
[2021-08-18] MEDS: Aspirin 300 MG Suppository PR SCH ×3 (08:29→09:00)
[2021-08-18] MEDS: Cholecalciferol (Vitamin D3) 400 UNITS TAB PO SCH (08:30)
[2021-08-18] MEDS: Zinc Sulfate 220 MG CAP PO SCH (08:30)
[2021-08-18] MEDS ORDERED: Potassium Chloride 20 MEQ in Premix Bag 1 BAG IVPB SCH (09:00)
[2021-08-18] MEDS: Thiamine HCl 200 MG/2 ML VIAL SLOW IVP SCH (11:09)
[2021-08-18] MEDS: Atorvastatin Calcium 40 MG TAB PO SCH (21:44)
[2021-08-19] MEDS ORDERED: Ziprasidone 20 MG VIAL IM SCH (01:05)
[2021-08-19] MEDS ORDERED: Sterile Water 10 ML VIAL FS PRN (01:15)
[2021-08-19] MEDS: Zinc Sulfate 220 MG CAP PO SCH (09:30)
[2021-08-19] MEDS: Cholecalciferol (Vitamin D3) 400 UNITS TAB PO SCH (09:30)
[2021-08-19] MEDS: Aspirin 300 MG Suppository PR SCH (09:30)
[2021-08-19] MEDS: Ascorbic Acid 500 mg Chewable Tablet PO SCH (09:30)
[2021-08-19 11:37] LABS: Anion Gap 11 mmol/L (10-20); BUN (Urea Nitrogen) 15 mg/dL (9.8-20.1); Calc. Creatinine Clearance 101 mL/min (70-130); Carbon Dioxide 23 mmol/L (22-29); Chloride 105 mmol/L (98-107); Glucose 101 mg/dL (70-105); Potassium 3.2 mmol/L (3.5-5.1); Sodium 136 mmol/L (136-145)
[2021-08-19] MEDS: Thiamine HCl 200 MG/2 ML VIAL SLOW IVP SCH (13:00)
[2021-08-19] MEDS: Diltiazem 125 MG in Sodium Chloride 0.9% 100 ML IVPB SCH (16:56)
[2021-08-19] MEDS: Atorvastatin Calcium 40 MG TAB PO SCH (20:57)
[2021-08-19] MEDS: Enoxaparin Sodium 40 MG/0.4 ML SYRINGE SC SCH (20:57)
[2021-08-20] MEDS ORDERED: Acetaminophen 325 MG TAB PO PRN (05:18)
[2021-08-20 06:43] LABS: Anion Gap 12 mmol/L (10-20); BUN (Urea Nitrogen) 17 mg/dL (9.8-20.1); Calc. Creatinine Clearance 101 mL/min (70-130); Calcium 9.3 mg/dL (7.8-10.44); Carbon Dioxide 24 mmol/L (22-29); Chloride 105 mmol/L (98-107); Glucose 99 mg/dL (70-105); Potassium 3.4 mmol/L (3.5-5.1); Sodium 138 mmol/L (136-145)
[2021-08-20] MEDS ORDERED: Potassium Chloride 20 MEQ in Premix Bag 1 BAG IVPB SCH (08:30)
[2021-08-20] MEDS: Ascorbic Acid 500 mg Chewable Tablet PO SCH (08:58)
[2021-08-20] MEDS: Zinc Sulfate 220 MG CAP PO SCH (08:59)
[2021-08-20] MEDS: Cholecalciferol (Vitamin D3) 400 UNITS TAB PO SCH (08:59)
[2021-08-20] MEDS: Aspirin 300 MG Suppository PR SCH ×2 (08:59→13:20)
[2021-08-20] MEDS ORDERED: Aspirin 325 mg Enteric Coated Tablet PO SCH (09:45)
[2021-08-20] MEDS ORDERED: Potassium Bicarbonate/Cit Ac 25 MEQ TAB PO SCH (09:55)
[2021-08-20] MEDS: Thiamine HCl 200 MG/2 ML VIAL SLOW IVP SCH (11:22)
[2021-08-20] MEDS: Diltiazem 125 MG in Sodium Chloride 0.9% 100 ML IVPB SCH (11:22)
[2021-08-20] MEDS: Enoxaparin Sodium 40 MG/0.4 ML SYRINGE SC SCH (21:08)
[2021-08-20] MEDS: Atorvastatin Calcium 40 MG TAB PO SCH (21:08)
[2021-08-21] MEDS ORDERED: Metoprolol Tartrate 5 MG/5 ML VIAL IVP PRN (07:52)
[2021-08-21 08:47] LABS: Anion Gap 13 mmol/L (10-20); BUN (Urea Nitrogen) 14 mg/dL (9.8-20.1); Calc. Creatinine Clearance 116 mL/min (70-130); Calcium 8.4 mg/dL (7.8-10.44); Carbon Dioxide 26 mmol/L (22-29); Chloride 104 mmol/L (98-107); Glucose 103 mg/dL (70-105); Potassium 3.5 mmol/L (3.5-5.1); Sodium 139 mmol/L (136-145)
[2021-08-21] MEDS: Cholecalciferol (Vitamin D3) 400 UNITS TAB PO SCH (08:53)
[2021-08-21] MEDS: Aspirin 325 mg Enteric Coated Tablet PO SCH (08:53)
[2021-08-21] MEDS: Ascorbic Acid 500 mg Chewable Tablet PO SCH (08:53)
[2021-08-21] MEDS: Zinc Sulfate 220 MG CAP PO SCH (08:53)
[2021-08-21] MEDS: Thiamine HCl 200 MG/2 ML VIAL SLOW IVP SCH (12:39)
[2021-08-21] MEDS ORDERED: Digoxin 0.5 MG/2 ML AMP SLOW IVP SCH (18:45)
[2021-08-21] MEDS: Enoxaparin Sodium 40 MG/0.4 ML SYRINGE SC SCH (21:05)
[2021-08-21] MEDS: Atorvastatin Calcium 40 MG TAB PO SCH (21:05)
[2021-08-22] MEDS: Cholecalciferol (Vitamin D3) 400 UNITS TAB PO SCH (08:27)
[2021-08-22] MEDS: Aspirin 325 mg Enteric Coated Tablet PO SCH (08:27)
[2021-08-22] MEDS: Zinc Sulfate 220 MG CAP PO SCH (08:28)
[2021-08-22] MEDS: Ascorbic Acid 500 mg Chewable Tablet PO SCH (08:28)
[2021-08-22] MEDS: Digoxin 0.25 MG TAB PO SCH (08:28)
[2021-08-22] MEDS: Thiamine HCl 200 MG/2 ML VIAL SLOW IVP SCH (11:26)
[2021-08-22] MEDS ORDERED: Digoxin 0.5 MG/2 ML AMP SLOW IVP SCH (16:45)
[2021-08-22] MEDS: Enoxaparin Sodium 40 MG/0.4 ML SYRINGE SC SCH (21:26)
[2021-08-22] MEDS: Atorvastatin Calcium 40 MG TAB PO SCH (21:26)
[2021-08-23] MEDS: Digoxin 0.25 MG TAB PO SCH (08:40)
[2021-08-23] MEDS: Ascorbic Acid 500 mg Chewable Tablet PO SCH (08:40)
[2021-08-23] MEDS: Zinc Sulfate 220 MG CAP PO SCH (08:40)
[2021-08-23] MEDS: Cholecalciferol (Vitamin D3) 400 UNITS TAB PO SCH (08:40)
[2021-08-23] MEDS: Aspirin 325 mg Enteric Coated Tablet PO SCH (08:40)
[2021-08-23] MEDS: Thiamine HCl 200 MG/2 ML VIAL SLOW IVP SCH (17:59)
[2021-08-23] MEDS: Atorvastatin Calcium 40 MG TAB PO SCH (20:08)
[2021-08-23] MEDS: Enoxaparin Sodium 40 MG/0.4 ML SYRINGE SC SCH (20:08)
[2021-08-24] MEDS: Thiamine 100 MG TAB PO SCH (08:19)
[2021-08-24] MEDS: Digoxin 0.25 MG TAB PO SCH (08:19)
[2021-08-24] MEDS: Zinc Sulfate 220 MG CAP PO SCH (08:19)
[2021-08-24] MEDS: Cholecalciferol (Vitamin D3) 400 UNITS TAB PO SCH (08:19)
[2021-08-24] MEDS: Apixaban 5 MG TAB PO SCH ×2 (08:19→20:20)
[2021-08-24] MEDS: Ascorbic Acid 500 mg Chewable Tablet PO SCH (08:19)
[2021-08-24] MEDS: Atorvastatin Calcium 40 MG TAB PO SCH (20:20)
[2021-08-25] MEDS: Cholecalciferol (Vitamin D3) 400 UNITS TAB PO SCH (08:10)
[2021-08-25] MEDS: Apixaban 5 MG TAB PO SCH ×2 (08:10→20:32)
[2021-08-25] MEDS: Thiamine 100 MG TAB PO SCH (08:10)
[2021-08-25] MEDS: Ascorbic Acid 500 mg Chewable Tablet PO SCH (08:10)
[2021-08-25] MEDS: Digoxin 0.25 MG TAB PO SCH (08:10)
[2021-08-25] MEDS: Zinc Sulfate 220 MG CAP PO SCH (08:10)
[2021-08-25] MEDS: Atorvastatin Calcium 40 MG TAB PO SCH (20:32)
[2021-08-26] MEDS: Ascorbic Acid 500 mg Chewable Tablet PO SCH (08:28)
[2021-08-26] MEDS: Thiamine 100 MG TAB PO SCH (08:28)
[2021-08-26] MEDS: Apixaban 5 MG TAB PO SCH ×2 (08:29→21:22)
[2021-08-26] MEDS: Digoxin 0.25 MG TAB PO SCH (08:29)
[2021-08-26] MEDS: Zinc Sulfate 220 MG CAP PO SCH (08:29)
[2021-08-26] MEDS: Cholecalciferol (Vitamin D3) 400 UNITS TAB PO SCH (08:30)
[2021-08-26] MEDS: Atorvastatin Calcium 40 MG TAB PO SCH (21:22)
[2021-08-27] MEDS: Ascorbic Acid 500 mg Chewable Tablet PO SCH (08:36)
[2021-08-27] MEDS: Thiamine 100 MG TAB PO SCH (08:37)
[2021-08-27] MEDS: Digoxin 0.25 MG TAB PO SCH (08:37)
[2021-08-27] MEDS: Cholecalciferol (Vitamin D3) 400 UNITS TAB PO SCH (08:37)
[2021-08-27] MEDS: Zinc Sulfate 220 MG CAP PO SCH (08:37)
[2021-08-27] MEDS: Apixaban 5 MG TAB PO SCH ×2 (08:37→19:54)
[2021-08-27] MEDS ORDERED: Bisacodyl 5 MG TAB PO PRN (16:43)
[2021-08-27] MEDS ORDERED: Bisacodyl 5 MG TAB PO SCH (16:45)
[2021-08-27] MEDS: Atorvastatin Calcium 40 MG TAB PO SCH (19:53)
[2021-08-28] MEDS: Zinc Sulfate 220 MG CAP PO SCH (08:39)
[2021-08-28] MEDS: Cholecalciferol (Vitamin D3) 400 UNITS TAB PO SCH (08:40)
[2021-08-28] MEDS: Thiamine 100 MG TAB PO SCH (08:40)
[2021-08-28] MEDS: Ascorbic Acid 500 mg Chewable Tablet PO SCH (08:40)
[2021-08-28] MEDS: Apixaban 5 MG TAB PO SCH (08:40)
[2021-08-28] MEDS: Digoxin 0.25 MG TAB PO SCH (08:41)
[2021-08-28 15:48] VITALS: BP 125/79; TEMP 99
== END 2021-08-28 19:05 | disposition home or self-care (01) | DRG 64 ==
LOC: 2SW 17:30 → NEURO 08-15 14:06
PROVIDERS: ADMIT Student in an Organized Health Care Education/Training Program; ATTEND Internal Medicine
PROC: 8E0ZXY6 Isolation (ICD-10-PCS; principal; 2021-08-06)
DX: I63.513 Cerebral infarction due to unspecified occlusion or stenosis of bilateral middle cerebral arteries (principal); U07.1 COVID-19; J96.00 Acute respiratory failure, unspecified whether with hypoxia or hypercapnia; I61.9 Nontraumatic intracerebral hemorrhage, unspecified; J90 Pleural effusion, not elsewhere classified; E87.1 Hypo-osmolality and hyponatremia; G93.40 Encephalopathy, unspecified; E87.0 Hyperosmolality and hypernatremia; I48.19 Other persistent atrial fibrillation; Z66 Do not resuscitate; Z51.5 Encounter for palliative care; I10 Essential (primary) hypertension; R47.1 Dysarthria and anarthria; R47.01 Aphasia; E78.2 Mixed hyperlipidemia; R29.708 NIHSS score 8; R13.12 Dysphagia, oropharyngeal phase; J44.9 Chronic obstructive pulmonary disease, unspecified; G93.89 Other specified disorders of brain; Z79.51 Long term (current) use of inhaled steroids; Z79.01 Long term (current) use of anticoagulants; Z79.82 Long term (current) use of aspirin; Z79.52 Long term (current) use of systemic steroids; Z79.02 Long term (current) use of antithrombotics/antiplatelets; Z79.899 Other long term (current) drug therapy
CPT/HCPCS: 36415; 70450; 71045; 74230; 76705; 80048; 80053; 80061; 83540; 83550; 83735; 84443; 85025; 85027; 85610; 86706; 86708; 86803; 87340; 93005; 93010; 93306; 95712; 95819; 95957; J1160; J1650; J2060; J2270; J3411; J3480; J3486; J3490; J7050